=== PATIENT | male | born 1940 | race Caucasian/White ===

== ENCOUNTER 2018-02-26 09:13 | Emergency (ER) | payer OTHER ==
--- NOTE | 2018-02-26 11:16 | RAD REPORT ---
EXAM DESCRIPTION: VAS - Upper Ext Artery Bilateral - 02/26/2018 10:42 am CLINICAL HISTORY: hand pain, discolored hands COMPARISON: None. TECHNIQUE: Sonographic evaluation of the bilateral upper extremity arterial tree performed. Waveform s and velocity values were obtained along with visual inspection. FINDINGS: No occlusion identified. No focal flow restricting lesion was seen. Arterial flow was demo nstrated in the bilateral subclavian axillary, brachial, radial and ulnar arteries. Right subclavian velocity was 109 cm/second with an 84 cm/second left subclavian velocity. Axillary velocities were 11 4 cm/second on the right and 106 cm/second on the left. Mid brachial artery velocity values were 111 cm/second on the right and 99 cm/second on the left. Radial artery velocities were 81 cm/second on th e right and 76 cm/second on the left. Ulnar artery velocities measured 76 cm per second on the right and 53 cm/second on the left. Atherosclerotic changes are identifiable in the vascular tree. IMPRESSION: Bilateral upper extremity atherosclerotic changes are identifiable. However, no occlusio n or flow restricting lesion. Bilateral radial and ulnar artery blood flow demonstrated.
--- NOTE | 2018-02-26 11:22 | RAD REPORT ---
EXAM DESCRIPTION: VAS - Extrem Venous W Compress Antoine - 02/26/2018 10:57 am CLINICAL HISTORY: Upper extremity pain and swelling. COMPARISON: None. TECHNIQUE: Real-time sonographic interrogation of the left and right upper extremity deep venous sys tems was performed. FINDINGS: Normal compressibility, flow augmentation, phasic flow and spontaneous flow is identified in both the left and right upper extremity deep venous systems. IMPRESSION: No sonographic evidence of left or right upper extremity deep venous thrombosis.
[2018-02-26 11:29] LABS: Absolute Lymphocytes (CBC) 1.1 K/uL (0.7-4.9); Absolute Monocytes 0.5 K/uL (0.1-1.3); Absolute Neutrophil 3.7 K/uL (1.8-8.0); Basophils % 0.3 % (0-1.3); Eosinophils % 1.3 % (0-4.4); Hematocrit 37.2 % (39.6-49.0); Lymphocytes % 20.9 % (15.3-44.8); MCH 30.7 pg (27.0-35.0); MCV 92.5 fL (80-100); MPV 8.7 fL (7.6-11.3); Monocytes % 9.4 % (3.3-12.3); RBC Red Blood Cell Count 4.02 M/uL (4.33-5.43)
[2018-02-26 11:34] LABS: Protime INR 1.06
[2018-02-26 11:41] LABS: Potassium 4.2 mEq/L (3.6-5.0)
--- NOTE | 2018-02-26 11:45 | EDPHYS ---
Physician Documentation [facility] Name: Josué Durbin Age: 77 yrs Sex: Male : 1940 Arrival Date: 02/26/2018 Time: 09:18 Bed 23 Private MD: Sergei Lauren V ED Physician Chuckie Wilson HPI: 02/26 11:06 This 77 yrs old Male presents to ER via Ambulatory with complaints of Blue rn Hands No radial pulse. 11:06 Reports at doctors office yesterday, had difficulty feeling radial pulses, states 2 rn months of intermittent bluish discoloration of both hands, no facial or truncal discoloration. No sob. No bleeding or concern for anemia.. Onset: The symptoms/episode began/occurred 2 month(s) ago. Severity of symptoms: At their worst the symptoms were mild in the emergency department the symptoms have improved. The patient has experienced similar episodes in the past. 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 - Social history:: Smoking status: Patient/guardian denies using tobacco. - Family history:: not pertinent. - Hospitalizations: : No recent hospitalization is reported. ROS: 11:06 Constitutional: Negative for fever, chills, and weight loss, Eyes: Negative for injury, rn pain, redness, and discharge, Neck: Negative for injury, pain, and swelling, Cardiovascular: Negative for chest pain, palpitations, and edema, Respiratory: Negative for shortness of breath, cough, wheezing, and pleuritic chest pain, Abdomen/GI: Negative for abdominal pain, nausea, vomiting, diarrhea, and constipation, Back: Negative for injury and pain, MS/Extremity: Negative for injury and deformity, Skin: Negative for injury, rash, and discoloration, Neuro: Negative for headache, weakness, numbness, tingling, and seizure. Exam: 11:06 Constitutional: This is a well developed, well nourished patient who is awake, alert, rn and in no acute distress. Head/Face: Normocephalic, atraumatic. Eyes: Pupils equal round and reactive to light, extra-ocular motions intact. Lids and lashes normal. Conjunctiva and sclera are non-icteric and not injected. Cornea within normal limits. Periorbital areas with no swelling, redness, or edema. Cardiovascular: Regular rate and rhythm with a normal S1 and S2. No gallops, murmurs, or rubs. Normal PMI, no JVD. No pulse deficits. Respiratory: Lungs have equal breath sounds bilaterally, clear to auscultation and percussion. No rales, rhonchi or wheezes noted. No increased work of breathing, no retractions or nasal flaring. Abdomen/GI: Soft, non-tender, with normal bowel sounds. No distension or tympany. No guarding or rebound. No evidence of tenderness throughout. Skin: Warm, dry with normal turgor. Normal color with no rashes, no lesions, and no evidence of cellulitis. MS/ Extremity: Pulses equal, no cyanosis. Neurovascular intact. Full, normal range of motion. Equal circumference. Neuro: Awake and alert, GCS 15, oriented to person, place, time, and situation. Cranial nerves II-XII grossly intact. Motor strength 5/5 in all extremities. Sensory grossly intact. Vital Signs: 09:48 BP 139 / 66; Pulse 16; Resp 16; Temp 98.1; Pulse Ox 100% on R/A; Pain 2/10; iw 11:26 BP 133 / 69; Pulse 50; Resp 18; Pulse Ox 98% ; aj1 MDM: 09:44 Patient medically screened. rn 11:43 Differential Diagnosis vascular spasm, anemia, vascular occlusion, medication side rn effect. Data reviewed: vital signs, nurses notes, lab test result(s), radiologic studies, doppler, ultrasound, and as a result, I will discharge patient. Counseling: I had a detailed discussion with the patient and/or guardian regarding: the historical points, exam findings, and any diagnostic results supporting the discharge/admit diagnosis, lab results, radiology results, the need for outpatient follow up, to return to the emergency department if symptoms worsen or persist or if there are any questions or concerns that arise at home. Response to treatment: the patient's condition has returned to base line. Special discussion: I discussed with the patient/guardian in detail that at this point there is no indication for admission to the hospital. It is understood, however, that if the symptoms persist or worsen the patient needs to return immediately for re-evaluation. ED course: Pt has f/u appt with cardiology tomorrow, return precautions given and understood.. 02/26 10:05 Order name: CBC with Diff; Complete Time: : rn 02/26 10:05 Order name: Basic Metabolic Panel; Complete Time: : rn 02/26 10:05 Order name: US Extrem Venous W Compression Antoine; Complete Time: rn 02/26 10:05 Order name: Protime (+inr); Complete Time: rn 02/26 10:05 Order name: Ptt, Activated; Complete Time: rn 02/26 10:22 Order name: Upper Ext Artery Bilateral; Complete Time: EDNC 02/26 10:05 Order name: IV Start; Complete Time: 11:25 rn Administered Medications: No medications were administered Disposition: 02/26/18 11:44 Discharged to Home. Impression: Cyanosis. - Condition is Stable. - Medication Reconciliation Form, Thank You Letter, Antibiotic Education, Prescription Opioid Use form. - Follow up: Sergei Lauren MD; When: As needed; Reason: Recheck today's complaints, Re-evaluation by your physician. - Problem is new. - Symptoms have improved. Signatures: Dispatcher [employer] Monique Gaffney RN RN aj1 Afshan Godfrey RN RN iw Chuckie Wilson MD MD rn
--- NOTE | 2018-02-26 11:45 | ER ---
Nurse's Notes [facility] Name: Josué Means Age: 77 yrs Sex: Male : 1940 Arrival Date: 02/26/2018 Time: 09:18 Bed 23 Private MD: Sergei Lauren V Diagnosis: Cyanosis Presentation: 02/26 09:47 Presenting complaint: Patient states: Bilateral hand pain and blue discoloration x 2-3 iw weeks. Transition of care: patient was received from another setting of care (ambulatory primary care physician practice), Sent by Dr. Huerta. Onset of symptoms is unknown. Care prior to arrival: None. 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 - Social history:: Smoking status: Patient/guardian denies using tobacco. - Family history:: not pertinent. - Hospitalizations: : No recent hospitalization is reported. Screenin:05 Abuse screen: Denies threats or abuse. Denies injuries from another. Nutritional aj1 screening: No deficits noted. Tuberculosis screening: No symptoms or risk factors identified. 11:49 Fall Risk None identified. aj1 Assessment: 10:05 General: Appears in no apparent distress. comfortable, Behavior is calm, cooperative, aj1 appropriate for age. Pain: Denies pain. Neuro: Level of Consciousness is awake, alert, obeys commands, forgetful. Speech is normal, Facial symmetry appears normal. Cardiovascular: Capillary refill < 3 seconds in bilateral fingers Patient's skin is warm and dry. Pulses are palpable in right radial artery and left radial artery. Respiratory: Airway is patent Respiratory effort is even, unlabored, Respiratory pattern is regular, symmetrical. GI: No signs and/or symptoms were reported involving the gastrointestinal system. : No signs and/or symptoms were reported regarding the genitourinary system. EENT: No signs and/or symptoms were reported regarding the EENT system. Derm: No signs and/or symptoms reported regarding the dermatologic system. Skin is pink, warm \T\ dry. normal. Musculoskeletal: No signs and/or symptoms reported regarding the musculoskeletal system. Circulation, motion, and sensation intact. 11:25 Reassessment: Patient appears in no apparent distress at this time. No changes from aj1 previously documented assessment. Patient and/or family updated on plan of care and expected duration. Pain level reassessed. Patient is alert, oriented x 3, equal unlabored respirations, skin warm/dry/pink. Vital Signs: 09:48 BP 139 / 66; Pulse 16; Resp 16; Temp 98.1; Pulse Ox 100% on R/A; Pain 2/10; iw 11:26 BP 133 / 69; Pulse 50; Resp 18; Pulse Ox 98% ; aj1 ED Course: 09:18 Patient arrived in ED. mr 09:19 Sergei Lauren MD is Private Physician. mr 09:44 Chuckie Wilson MD is Attending Physician. rn 09:48 Monique De Jesus RN is Primary Nurse. aj1 09:48 Triage completed. iw 09:48 Arm band placed on right wrist. iw 10:05 Patient has correct armband on for positive identification. Placed in gown. Bed in low aj1 position. Call light in reach. Side rails up X 1. Family at bedside. 10:05 No provider procedures requiring assistance completed. aj1 10:38 Patient taken to ultrasound. via wheelchair. lc3 10:42 Upper Ext Artery Bilateral In Process Unspecified. EDMS 10:43 US Extrem Venous W Compression Antoine In Process Unspecified. EDMS 11:07 Ultrasound completed. Patient tolerated well. Patient moved back from ultrasound. aa4 11:26 Initial lab(s) drawn, by oh, sent to lab. Inserted saline lock: 22 gauge in right aj1 antecubital area, using aseptic technique. Blood collected. 11:44 Sergei Lauren MD is Referral Physician. rn 12:28 IV discontinued, intact, bleeding controlled, No redness/swelling at site. Pressure aj1 dressing applied. Administered Medications: No medications were administered Outcome: 11:44 Discharge ordered by . rn 12:28 Discharged to home ambulatory. aj1 12:28 Condition: good 12:28 Discharge instructions given to patient, Instructed on discharge instructions, follow up and referral plans. Demonstrated understanding of instructions, follow-up care. 12:28 Patient left the ED. aj1 Signatures: Dispatcher [employer] EDMonique Younger RN RN aj1 Rivera, Maria mr Afsahn Godfrey RN RN iw Frazier, Amanda aa4 Chuckie Wilson MD MD rn Cunningham, Laulita lc3
[2018-02-26 12:35] VITALS: TEMP 98.1
[2018-02-26 12:37] VITALS: BP 133/69; O2SAT 98
== END 2018-02-26 12:28 | disposition home or self-care (01) ==
LOC: ER 09:13
DX: R23.0 Cyanosis (principal)
CPT/HCPCS: 36415; 80048; 85025; 85610; 85730; 93930; 93970; 99284

== ENCOUNTER 2018-03-02 22:02 | Emergency (ER) | payer OTHER ==
[2018-03-02 23:17] LABS: Absolute Lymphocytes (CBC) 1.5 K/uL (0.7-4.9); Absolute Monocytes 0.5 K/uL (0.1-1.3); Absolute Neutrophil 3.2 K/uL (1.8-8.0); Basophils % 0.5 % (0-1.3); Eosinophils % 1.5 % (0-4.4); Lymphocytes % 28.4 % (15.3-44.8); MCH 30.5 pg (27.0-35.0); MCV 92.6 fL (80-100); MPV 8.7 fL (7.6-11.3); Monocytes % 8.6 % (3.3-12.3); RBC Red Blood Cell Count 4.21 M/uL (4.33-5.43)
[2018-03-02 23:51] LABS: Protime INR 1.05
[2018-03-02 23:57] LABS: Bilirubin Direct 0.1 mg/dL (0-0.2); Bilirubin Total 0.3 mg/dL (0.3-1.2); Magnesium 1.9 mg/dL (1.8-2.5); Protein, Total 7.6 g/dL (6.0-8.3)
[2018-03-03 00:01] LABS: CKMB Creatine Kinase MB 1.7 ng/ml (0.3-4.0)
--- NOTE | 2018-03-03 01:10 | EDPHYS ---
Physician Documentation [facility] Name: Josué Durbin Age: 77 yrs Sex: Male : 1940 Arrival Date: 03/02/2018 Time: 22:04 Bed 7 Private MD: ED Physician Jimi Pavon HPI: 03/02 23:22 This 77 yrs old Male presents to ER via Ambulatory with complaints of High jr8 Blood Pressure. Chest pain. Shortness of breath. 23:22 The patient or guardian reports chest pain that is located primarily in the substernal jr8 area. Onset: gradually, 6 month(s) ago. The pain does not radiate. Associated signs and symptoms: Pertinent positives: shortness of breath, HERNDON. The chest pain is described as a pressure. Duration: The patient or guardian reports multiple episodes, that are intermittent, that wax and wane. Modifying factors: The symptoms are alleviated by rest. Severity of pain: At its worst the pain was mild in the emergency department the pain is unchanged. The patient has not experienced similar symptoms in the past. The patient has not recently seen a physician. Patient stated that for the past 6 months or so has been experiencing chest pain that is intermittent and relieved with rest. Stated that he came to hospital today for HERNDON which he normally does not have and elevated BP. 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 - Social history:: Smoking status: Patient uses tobacco products, cigars. ROS: 23:22 Eyes: Negative for injury, pain, redness, and discharge, ENT: Negative for injury, jr8 pain, and discharge, Neck: Negative for injury, pain, and swelling, Abdomen/GI: Negative for abdominal pain, nausea, vomiting, diarrhea, and constipation, Back: Negative for injury and pain, MS/Extremity: Negative for injury and deformity, Skin: Negative for injury, rash, and discoloration, Neuro: Negative for headache, weakness, numbness, tingling, and seizure. 23:22 Cardiovascular: Positive for chest pain, edema, Negative for orthopnea, palpitations, acute changes. 23:22 Respiratory: Positive for dyspnea on exertion, shortness of breath. Exam: 23:22 Eyes: Pupils equal round and reactive to light, extra-ocular motions intact. Lids and jr8 lashes normal. Conjunctiva and sclera are non-icteric and not injected. Cornea within normal limits. Periorbital areas with no swelling, redness, or edema. ENT: Nares patent. No nasal discharge, no septal abnormalities noted. Tympanic membranes are normal and external auditory canals are clear. Oropharynx with no redness, swelling, or masses, exudates, or evidence of obstruction, uvula midline. Mucous membranes moist. Neck: Trachea midline, no thyromegaly or masses palpated, and no cervical lymphadenopathy. Supple, full range of motion without nuchal rigidity, or vertebral point tenderness. No Meningismus. Respiratory: Lungs have equal breath sounds bilaterally, clear to auscultation and percussion. No rales, rhonchi or wheezes noted. No increased work of breathing, no retractions or nasal flaring. Abdomen/GI: Soft, non-tender, with normal bowel sounds. No distension or tympany. No guarding or rebound. No evidence of tenderness throughout. Back: No spinal tenderness. No costovertebral tenderness. Full range of motion. Skin: Warm, dry with normal turgor. Normal color with no rashes, no lesions, and no evidence of cellulitis. MS/ Extremity: Pulses equal, no cyanosis. Neurovascular intact. Full, normal range of motion. Neuro: Awake and alert, GCS 15, oriented to person, place, time, and situation. Cranial nerves II-XII grossly intact. Motor strength 5/5 in all extremities. Sensory grossly intact. Cerebellar exam normal. Normal gait. 23:22 Cardiovascular: Rate: bradycardic, Rhythm: regular, Pulses: Pulses are 2+ in right radial artery and left radial artery. Heart sounds: normal, normal S1and S2, no S3 or S4, no murmur, no rub, no gallop, Edema: 2+ edema to level of left midcalf, left ankle, right midcalf and right ankle, JVD: is not appreciated. Vital Signs: 22:27 BP 148 / 110; Pulse 65; Resp 18; Temp 97.7(O); Pulse Ox 98% on R/A; Weight 78.02 kg; tl2 Height 5 ft. 7 in. (170.18 cm); Pain 0/10; 22:35 BP 130 / 77; Pulse 56; Resp 18; Pulse Ox 98% on R/A; tl2 23:10 BP 182 / 80; Pulse 66; Resp 19; Pulse Ox 98% on R/A; tl2 23:51 BP 123 / 68; Pulse 54; Resp 16; Pulse Ox 98% on R/A; tl2 03/03 00:35 BP 156 / 65; Pulse 55; Resp 18; Pulse Ox 99% on R/A; tl2 01:09 BP 128 / 69; Pulse 52; Resp 18; Pulse Ox 98% on R/A; Pain 0/10; tl2 03/02 22:27 Body Mass Index 26.94 (78.02 kg, 170.18 cm) tl2 MDM: 03/02 22:18 Patient medically screened. [facility] 03/03 01:05 Data reviewed: vital signs, nurses notes, lab test result(s), EKG, radiologic studies, jr8 plain films, and as a result, I will discharge patient. Data interpreted: Pulse oximetry: on room air is 99 %. Interpretation: normal. Counseling: I had a detailed discussion with the patient and/or guardian regarding: the historical points, exam findings, and any diagnostic results supporting the discharge/admit diagnosis, lab results, radiology results, the need for outpatient follow up, a oracle business intelligence developer, to return to the emergency department if symptoms worsen or persist or if there are any questions or concerns that arise at home. ED course: Patient feeling better while in ED. Blood pressure stable. Bradycardia with 1st degree AV block and sinus pause noted. Explained to patient that labs and imaging are stable. No acute findings. What he has been experiencing can be related to HR itself. Recommended observation overnight in hospital but patient wants to go home. Patient has echocardiogram scheduled this Sunday with Dr. Huerta. Pacemaker has been considered as well and may be done in near future per family. Patient was able to ambulate with no problem. Denied dizziness, Fatigue, chest pain, or shortness of breath . 03/02 22:54 Order name: Basic Metabolic Panel; Complete Time: 00:02 03/02 22:54 Order name: BNP; Complete Time: 00:02 03/02 22:54 Order name: CBC with Diff; Complete Time: 23:55 03/02 22:54 Order name: Ckmb; Complete Time: 00:02 03/02 22:54 Order name: CPK; Complete Time: 00:02 03/02 22:54 Order name: LFT's; Complete Time: 00:02 03/02 22:54 Order name: Magnesium; Complete Time: 00:02 03/02 22:54 Order name: PT-INR; Complete Time: 23:58 03/02 22:54 Order name: Ptt, Activated; Complete Time: 23:58 03/02 22:54 Order name: Troponin (emerg Dept Use Only); Complete Time: 23:58 03/02 22:54 Order name: XRAY Chest (1 view) 03/02 22:54 Order name: EKG; Complete Time: 22:54 03/02 22:54 Order name: Cardiac monitoring; Complete Time: 23:10 03/02 22:54 Order name: EKG - Nurse/Tech; Complete Time: 23:10 03/02 22:54 Order name: IV Saline Lock; Complete Time: 23:10 03/02 22:54 Order name: Labs collected and sent; Complete Time: 23:10 03/02 22:54 Order name: O2 Per Protocol; Complete Time: 23:10 03/02 22:54 Order name: O2 Sat Monitoring; Complete Time: 23:03/02 22:54 Order name: Urine Dipstick-Ancillary (obtain specimen); Complete Time: 01:07 Administered Medications: No medications were administered Disposition: 03/03/18 01:09 Discharged to Home. Impression: Bradycardia, unspecified, Chest pain, unspecified. - Condition is Stable. - Discharge Instructions: Bradycardia, Nonspecific Chest Pain. - Medication Reconciliation Form, Thank You Letter, Antibiotic Education, Prescription Opioid Use form. - Follow up: Liam Huerta MD; When: 2 - 3 days; Reason: Recheck today's complaints, Continuance of care, Re-evaluation by your physician. - Problem is new. - Symptoms have improved. Addendum: 03/04/2018 06:22 Co-signature as Attending Physician, Giovany MCCLOUD. g s Signatures: Dispatcher [employer] EDMS Giovany Schmidt PA PA jr8 Eden Santos RN RN tl2 Jimi Pavon MD MD
--- NOTE | 2018-03-03 01:10 | ER ---
Nurse's Notes [facility] Name: Josué Durbin Age: 77 yrs Sex: Male : 1940 Arrival Date: 03/02/2018 Time: 22:04 Bed 7 Private MD: Diagnosis: Bradycardia, unspecified;Chest pain, unspecified Presentation: 03/02 22:22 Presenting complaint: Child states: His blood pressure was high today and he's been tl2 shaking and more tired than normal. We have an appointment on Sunday with Dr Huerta to talk about putting in a pacemaker. Pt is AOx4, denies any chest pain or shortness of breath. Transition of care: patient was not received from another setting of care. Onset of symptoms was March 02, 2018. Care prior to arrival: None. 22:22 Method Of Arrival: Ambulatory tl2 22:22 Acuity: JERE 3 tl2 Triage Assessment: 22:27 General: Appears in no apparent distress. comfortable, Behavior is calm, cooperative, tl2 appropriate for age. Pain: Denies pain. Neuro: Level of Consciousness is awake, alert, obeys commands, Oriented to person, place, time, situation. Cardiovascular: Denies chest pain. Respiratory: Airway is patent Respiratory effort is even, unlabored, Respiratory pattern is regular, symmetrical. GI: No signs and/or symptoms were reported involving the gastrointestinal system. : No signs and/or symptoms were reported regarding the genitourinary system. Derm: Skin is clammy, Skin is normal. Musculoskeletal: Parent/caregiver report the patient having tremors. 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 - Social history:: Smoking status: Patient uses tobacco products, cigars. Screenin:28 Abuse screen: Denies threats or abuse. Nutritional screening: No deficits noted. tl2 Tuberculosis screening: No symptoms or risk factors identified. Fall Risk Ambulatory Aid- Crutches/Cane/Walker (15 pts). Assessment: 22:28 General: see triage assessment. tl2 23:11 Reassessment: Patient appears in no apparent distress at this time. No changes from tl2 previously documented assessment. Patient and/or family updated on plan of care and expected duration. Pain level reassessed. Patient is alert, oriented x 3, equal unlabored respirations, skin warm/dry/pink. 23:51 Reassessment: Patient appears in no apparent distress at this time. Patient and/or tl2 family updated on plan of care and expected duration. Pain level reassessed. Patient is alert, oriented x 3, equal unlabored respirations, skin warm/dry/pink. 03/03 01:08 Reassessment: PA ordered to ambulate pt before discharge. Pt able to walk up and down tl2 hallway without assistance. Denied dizziness or pain. PA cleared pt for discharge. Reassessment: Pt and family verbalized understanding of discharge instructions and need for follow up. Vital Signs: 03/02 22:27 BP 148 / 110; Pulse 65; Resp 18; Temp 97.7(O); Pulse Ox 98% on R/A; Weight 78.02 kg; tl2 Height 5 ft. 7 in. (170.18 cm); Pain 0/10; 22:35 BP 130 / 77; Pulse 56; Resp 18; Pulse Ox 98% on R/A; tl2 23:10 BP 182 / 80; Pulse 66; Resp 19; Pulse Ox 98% on R/A; tl2 23:51 BP 123 / 68; Pulse 54; Resp 16; Pulse Ox 98% on R/A; tl2 03/03 00:35 BP 156 / 65; Pulse 55; Resp 18; Pulse Ox 99% on R/A; tl2 01:09 BP 128 / 69; Pulse 52; Resp 18; Pulse Ox 98% on R/A; Pain 0/10; tl2 03/02 22:27 Body Mass Index 26.94 (78.02 kg, 170.18 cm) tl2 ED Course: 03/02 22:04 Patient arrived in ED. do 22:18 Giovany Schmidt PA is PHCP. jr8 22:18 Jimi Pavon MD is Attending Physician. jr8 22:22 Eden Santos, JAMMIE is Primary Nurse. tl2 22:24 Triage completed. tl2 22:27 Arm band placed on right wrist. tl2 22:28 Patient has correct armband on for positive identification. Placed in gown. Bed in low tl2 position. Call light in reach. Side rails up X 1. Adult w/ patient. 23:06 X-ray completed. Portable x-ray completed in exam room. Patient tolerated procedure jw2 well. 23:10 Inserted saline lock: 20 gauge in right antecubital area, using aseptic technique. tl2 Blood collected. 23:12 XRAY Chest (1 view) In Process Unspecified. EDAL 03/03 01:08 Liam Huerta MD is Referral Physician. jr8 01:08 No provider procedures requiring assistance completed. tl2 01:12 IV discontinued, intact, bleeding controlled, No redness/swelling at site. Pressure tl2 dressing applied. Administered Medications: No medications were administered Outcome: 01:09 Discharge ordered by . jr8 01:12 Discharged to home ambulatory, with family. tl2 01:12 Condition: stable 01:12 Discharge instructions given to patient, family, Instructed on discharge instructions, follow up and referral plans. Demonstrated understanding of instructions, follow-up care. 01:13 Patient left the ED. tl2 Signatures: Dispatcher [employer] EDAL Giovany Schmidt PA PA jr8 Cheryl Desouza Jenni jw2 Eden Santos, RN RN tl2 Corrections: (The following items were deleted from the chart) 03/02 22:35 22:27 Derm: Skin is pink, warm \T\ dry. tl2 tl2
[2018-03-03 01:20] VITALS: TEMP 97.7
[2018-03-03 01:27] VITALS: BP 128/69; O2SAT 98
[2018-03-03 05:35] LABS: Urine Blood NEGATIVE (NEG); Urine Glucose NEGATIVE (NEG); Urine Protein NEGATIVE (NEG); Urine pH 6.5 (5.0-7.0)
--- NOTE | 2018-03-03 10:12 | RAD REPORT ---
EXAM DESCRIPTION: RAD - Chest Single View - 03/02/2018 11:14 pm CLINICAL HISTORY: Chest pain, shortness of breath COMPARISON: March 2015 TECHNIQUE: AP portable chest image was obtained 2309 hours . FINDINGS: No focal consolidation, mass or failure. Lung markings are mildly prominent but not clearl y different. Heart and vasculature are normal. No measurable pleural effusion and no pneumothorax. No gross bony abnormality seen. No acute aortic findings suspected. IMPRESSION: No focal lung parenchymal process seen. Baseline prominence of the interstitial markings not substantially different from comparison.
--- NOTE | 2018-03-03 22:33 | EKG ---
Test Date: 2018-03-02 Test Time: 22:58:01 Anesthesiology Technologist: MAYELA MEASUREMENT RESULTS: Intervals: Rate: 51 CT: 240 QRSD: 146 QT: 468 QTc: 431 [place]: P: CT: 240 QRS: -18 T: 102 INTERPRETIVE STATEMENTS: Sinus bradycardia with first degree AV block Left bundle branch block Abnormal ECG Compared to ECG 03/29/2015 06:58:51 no significant change from previous ECG Electronically Signed On 03-03-18 22:33:05 CDT by Renaldo Sullivan
== END 2018-03-03 01:13 | disposition home or self-care (01) ==
LOC: ER 22:02
DX: R00.1 Bradycardia, unspecified (principal); R06.00 Dyspnea, unspecified; G30.9 Alzheimer's disease, unspecified; F02.80 Dementia in other diseases classified elsewhere, unspecified severity, without behavioral disturbance, psychotic disturbance, mood disturbance, and anxiety; Z72.0 Tobacco use
CPT/HCPCS: 36415; 71045; 80048; 80076; 81003; 82550; 82553; 83735; 83880; 84484; 85025; 85610; 85730; 93005; 99284

== ENCOUNTER 2018-03-03 19:36 | Observation (INO) | payer OTHER ==
[2018-03-03] MEDS ORDERED: ASPIRIN 81 MG CHEWABLE TABLET ONE (20:46)
[2018-03-03 20:56] LABS: Absolute Lymphocytes (CBC) 1.2 K/uL (0.7-4.9); Absolute Monocytes 0.4 K/uL (0.1-1.3); Basophils % 0.3 % (0-1.3); Eosinophils % 1.5 % (0-4.4); Hematocrit 35.7 % (39.6-49.0); Lymphocytes % 26.3 % (15.3-44.8); MCH 31.3 pg (27.0-35.0); MCV 91.5 fL (80-100); MPV 8.6 fL (7.6-11.3); Monocytes % 8.7 % (3.3-12.3)
[2018-03-03 21:05] LABS: Potassium 4.2 mEq/L (3.6-5.0)
--- NOTE | 2018-03-03 21:35 | ER ---
Nurse's Notes [facility] Name: Josué Means Age: 77 yrs Sex: Male : 1940 Arrival Date: 03/03/2018 Time: 19:40 Bed 18 Private MD: Diagnosis: Chest pain, unspecified;Bradycardia, unspecified Presentation: 03/03 19:43 Presenting complaint: Child states: He had really high BP last night and his HR was low la1 and they wanted to keep him and he refused and he is getting worse with the chest discomfort and high BP. Transition of care: patient was not received from another setting of care. Onset of symptoms was March 03, 2018. Care prior to arrival: None. 19:43 Method Of Arrival: Wheelchair la1 19:43 Acuity: JERE 3 la1 Historical: - Allergies: 19:44 No Known Allergies; la1 - PMHx: 19:44 Alzheimers; enlarged prostate; la1 - Immunization history:: Adult Immunizations up to date. - Social history:: Smoking status: Patient uses tobacco products, cigars. Screenin:37 Abuse screen: Denies threats or abuse. Nutritional screening: No deficits noted. ea Tuberculosis screening: No symptoms or risk factors identified. Fall Risk None identified. Assessment: 20:36 General: Appears in no apparent distress. Behavior is calm, cooperative, appropriate ea for age. Pain: Pain: Complains of pain in chest Pain does not radiate. Pain currently is 4 out of 10 on a pain scale. Pain began 1 day ago. Neuro: Level of Consciousness is awake, alert, obeys commands, Oriented to person, place, time, situation, Appropriate for age. Cardiovascular: Heart tones present. Respiratory: Airway is patent Respiratory effort is even, unlabored, Respiratory pattern is regular, symmetrical, Breath sounds are clear bilaterally. GI: Abdomen is non-distended. : No signs and/or symptoms were reported regarding the genitourinary system. Derm: Skin is pink, warm \T\ dry. 20:51 Reassessment: Patient and/or family updated on plan of care and expected duration. Pain ea level reassessed. Patient is alert, oriented x 3, equal unlabored respirations, skin warm/dry/pink. family at bedside. 21:10 Reassessment: Patient and/or family updated on plan of care and expected duration. Pain ea level reassessed. Patient is alert, oriented x 3, equal unlabored respirations, skin warm/dry/pink. 22:49 Reassessment: Patient and/or family updated on plan of care and expected duration. Pain ea level reassessed. Patient is alert, oriented x 3, equal unlabored respirations, skin warm/dry/pink. Report called to Cheryl AGUDELO on fourth floor. Vital Signs: 19:46 BP 135 / 83; Pulse 51; Resp 17; Temp 98.2(TE); Pulse Ox 100% on R/A; Weight 78.02 kg; la1 Height 5 ft. 2 in. (157.48 cm); 20:40 BP 152 / 64; Pulse 52; Resp 18; Pulse Ox 99% on R/A; ea 21:10 BP 157 / 80; Pulse 50; Resp 18; Pulse Ox 99% on R/A; ea 22:50 BP 180 / 67; Pulse 52; Resp 18 S; Temp 98; Pulse Ox 99% on R/A; ea 19:46 Body Mass Index 31.46 (78.02 kg, 157.48 cm) la1 ED Course: 19:40 Patient arrived in ED. al2 19:44 Triage completed. la1 19:44 Arm band placed on left wrist. la1 19:54 Elda Obrien, JAMMIE is Primary Nurse. ea 19:56 Jimi Pavon MD is Attending Physician. gs 20:04 Giovany Schmidt PA is PHCP. rg2 20:38 Patient has correct armband on for positive identification. Bed in low position. Call ea light in reach. Side rails up X2. manager monitoring on. NIBP on. 20:38 Patient maintains SpO2 saturation greater than 95% on room air. ea 20:39 Inserted saline lock: 20 gauge in right antecubital area, using aseptic technique. ea Blood collected. 21:34 Sergei Lauren MD is Hospitalizing Provider. jr8 21:46 No provider procedures requiring assistance completed. Patient admitted, IV remains in ea place. Administered Medications: 20:50 Drug: Aspirin Chewable Tablet 324 mg Route: PO; ea 21:47 Follow up: Response: No adverse reaction ea Outcome: 21:34 Decision to Hospitalize by Provider. jr8 21:47 Instructed on the need for admit. ea 22:48 Condition: stable ea 22:52 Admitted to Med/surg accompanied by tech, via wheelchair, room 427, Report called to ricardo Luna RN 22:58 Patient left the ED. ricardo Signatures: Sosa Johnston2 Giovany Schmidt PA PA jr8 Kong Elizondo RN RN la1 Elda Obrien RN RN Jimi Devine MD MD gs Love, Niru siu2 Corrections: (The following items were deleted from the chart) 22:50 20:36 Pain: ricardo silva
--- NOTE | 2018-03-03 21:35 | EDPHYS ---
Physician Documentation [facility] Name: Josué Durbin Age: 77 yrs Sex: Male : 1940 Arrival Date: 03/03/2018 Time: 19:40 Bed 18 Private MD: ED Physician Jimi Pavon HPI: 03/03 20:34 This 77 yrs old Male presents to ER via Wheelchair with complaints of Chest jr8 Pain,. 20:34 The patient or guardian reports chest pain that is located primarily in the substernal jr8 area. Onset: acutely, today. The pain does not radiate. Associated signs and symptoms: Pertinent positives: weakness, fatigue. The chest pain is described as a heaviness, a pressure. Duration: The patient or guardian reports a single episode. Modifying factors: The symptoms are alleviated by rest, the symptoms are aggravated by activity. Severity of pain: At its worst the pain was moderate in the emergency department the pain has improved. The patient has experienced similar episodes in the past, a few times. The patient has been recently seen by a physician:. Patient recently seen yesterday for similar symptoms. Did not want to stay. Started to happen again today and came back for reevaluation and admission . Historical: - Allergies: 19:44 No Known Allergies; la1 - PMHx: 19:44 Alzheimers; enlarged prostate; la1 - Immunization history:: Adult Immunizations up to date. - Social history:: Smoking status: Patient uses tobacco products, cigars. ROS: 20:34 Eyes: Negative for injury, pain, redness, and discharge, ENT: Negative for injury, jr8 pain, and discharge, Neck: Negative for injury, pain, and swelling, Respiratory: Negative for shortness of breath, cough, wheezing, and pleuritic chest pain, Abdomen/GI: Negative for abdominal pain, nausea, vomiting, diarrhea, and constipation, Back: Negative for injury and pain, MS/Extremity: Negative for injury and deformity, Skin: Negative for injury, rash, and discoloration, Neuro: Negative for headache, weakness, numbness, tingling, and seizure. 20:34 Cardiovascular: Positive for chest pain, Negative for edema, orthopnea, palpitations, paroxysmal nocturnal dyspnea. Exam: 20:34 Head/Face: Normocephalic, atraumatic. Eyes: Pupils equal round and reactive to light, jr8 extra-ocular motions intact. Lids and lashes normal. Conjunctiva and sclera are non-icteric and not injected. Cornea within normal limits. Periorbital areas with no swelling, redness, or edema. ENT: Nares patent. No nasal discharge, no septal abnormalities noted. Tympanic membranes are normal and external auditory canals are clear. Oropharynx with no redness, swelling, or masses, exudates, or evidence of obstruction, uvula midline. Mucous membranes moist. Neck: Trachea midline, no thyromegaly or masses palpated, and no cervical lymphadenopathy. Supple, full range of motion without nuchal rigidity, or vertebral point tenderness. No Meningismus. Cardiovascular: Regular rate and rhythm with a normal S1 and S2. No gallops, murmurs, or rubs. Normal PMI, no JVD. No pulse deficits. Respiratory: Lungs have equal breath sounds bilaterally, clear to auscultation and percussion. No rales, rhonchi or wheezes noted. No increased work of breathing, no retractions or nasal flaring. Abdomen/GI: Soft, non-tender, with normal bowel sounds. No distension or tympany. No guarding or rebound. No evidence of tenderness throughout. Back: No spinal tenderness. No costovertebral tenderness. Full range of motion. Skin: Warm, dry with normal turgor. Normal color with no rashes, no lesions, and no evidence of cellulitis. MS/ Extremity: Pulses equal, no cyanosis. Neurovascular intact. Full, normal range of motion. Neuro: Awake and alert, GCS 15, oriented to person, place, time, and situation. Cranial nerves II-XII grossly intact. Motor strength 5/5 in all extremities. Sensory grossly intact. Cerebellar exam normal. Normal gait. Vital Signs: 19:46 BP 135 / 83; Pulse 51; Resp 17; Temp 98.2(TE); Pulse Ox 100% on R/A; Weight 78.02 kg; la1 Height 5 ft. 2 in. (157.48 cm); 20:40 BP 152 / 64; Pulse 52; Resp 18; Pulse Ox 99% on R/A; ea 21:10 BP 157 / 80; Pulse 50; Resp 18; Pulse Ox 99% on R/A; ea 22:50 BP 180 / 67; Pulse 52; Resp 18 S; Temp 98; Pulse Ox 99% on R/A; ea 19:46 Body Mass Index 31.46 (78.02 kg, 157.48 cm) la1 MDM: 20:02 Patient medically screened. gs 20:34 The patient was given aspirin in the Emergency Department. Data reviewed: vital signs, [facility] nurses notes, lab test result(s), EKG, radiologic studies, plain films, and as a result, I will admit patient. Data interpreted: Pulse oximetry: on room air is 100 %. Interpretation: normal. 21:32 Counseling: I had a detailed discussion with the patient and/or guardian regarding: the [facility] historical points, exam findings, and any diagnostic results supporting the discharge/admit diagnosis, lab results, radiology results, the need for further work-up and treatment in the hospital. ED course: Patient came back again today for same problem. Bradycardia noted again on EKG. Labs stable. Will admit for Dr. Huerta and Leonidas to further evaluate patient for chest pain and bradycardia . 21:34 ED course: Dr. Rodriguez called and was fine with admission to [facility] . [facility] 03/03 19:56 Order name: Basic Metabolic Panel 03/03 19:56 Order name: CBC with Diff 03/03 19:56 Order name: Troponin (emerg Dept Use Only); Complete Time: 21:22 03/03 19:57 Order name: Basic Metabolic Panel; Complete Time: 21:06 [facility] 03/03 19:57 Order name: CBC with Automated Diff; Complete Time: 21:04 [facility] 03/03 22:48 Order name: Urine Dipstick--Ancillary (enter results) 2 03/03 19:56 Order name: EKG; Complete Time: 19:57 03/03 19:56 Order name: Cardiac monitoring; Complete Time: 20:39 03/03 19:56 Order name: EKG - Nurse/Tech; Complete Time: 20:39 03/03 19:56 Order name: IV Saline Lock; Complete Time: 20:39 03/03 19:56 Order name: Labs collected and sent; Complete Time: 20:39 03/03 19:56 Order name: O2 Per Protocol; Complete Time: 20:40 03/03 19:56 Order name: O2 Sat Monitoring; Complete Time: 20:40 gs Administered Medications: 20:50 Drug: Aspirin Chewable Tablet 324 mg Route: PO; ea 21:47 Follow up: Response: No adverse reaction ea Disposition: 03/04 06:22 Co-signature as Attending Physician, Jimi Pavon MD. Disposition: 03/03/18 21:34 Hospitalization ordered by Sergei Lauren for Observation. Preliminary diagnosis are Chest pain, unspecified, Bradycardia, unspecified. - Bed requested for Telemetry/MedSurg (observation). - Status is Observation. ea - Condition is Stable. - Problem is new. - Symptoms are unchanged. UTI on Admission? No Signatures: Dispatcher [employer] EDMS Stephanie Steinberg RN RN mw Roszak, Josh, PA PA jr8 Kong Elizondo RN RN la1 Elda Obrien RN RN ea Starr, Gregory, MD MD
[2018-03-03] MEDS ORDERED: ONDANSETRON 4 MG/2 ML VIAL IV PRN (23:03)
[2018-03-03] MEDS ORDERED: ALBUTEROL 2.5 MG/3 ML NEB SOL NEB PRN (23:03)
[2018-03-03] MEDS ORDERED: ACETAMINOPHEN 500 MG TAB PO PRN (23:03)
[2018-03-03 23:09] VITALS: BMI 26.7
[2018-03-04 00:18] LABS: Urine Blood NEGATIVE (NEG); Urine Glucose NEGATIVE (NEG); Urine Protein NEGATIVE (NEG); Urine pH 5.5 (5.0-7.0)
[2018-03-04 04:52] LABS: Absolute Lymphocytes (CBC) 1.7 K/uL (0.7-4.9); Absolute Monocytes 0.5 K/uL (0.1-1.3); Absolute Neutrophil 2.1 K/uL (1.8-8.0); Basophils % 0.3 % (0-1.3); Eosinophils % 2.3 % (0-4.4); Hematocrit 36.1 % (39.6-49.0); Lymphocytes % 38.9 % (15.3-44.8); MCH 30.6 pg (27.0-35.0); MPV 9.3 fL (7.6-11.3); Monocytes % 11.5 % (3.3-12.3); RBC Red Blood Cell Count 3.92 M/uL (4.33-5.43)
[2018-03-04 05:30] LABS: Potassium 4.1 mEq/L (3.6-5.0)
--- NOTE | 2018-03-04 07:37 | EKG ---
Test Date: 2018-03-03 Test Time: 20:04:00 [employer] Developer: LA MEASUREMENT RESULTS: Intervals: Rate: 46 [place]: 260 QRSD: 142 QT: 496 QTc: 434 [place]: P: [place]: 260 QRS: 48 T: 92 INTERPRETIVE STATEMENTS: Sinus bradycardia with first degree AV block Left bundle branch block Abnormal ECG Compared to ECG 03/02/2018 22:58:01 no significant change from previous ECG Electronically Signed On 03-04-18 07:37:17 CDT by Renaldo Sullivan
[2018-03-04] MEDS ORDERED: ASPIRIN EC 81 MG TAB PO SCH (09:00)
[2018-03-04] MEDS ORDERED: REGADENOSON 0.4 MG/5 ML SYR IV ONE (10:11)
--- NOTE | 2018-03-04 11:08 | ECHO ---
HEIGHT: 5 ft 7 in WEIGHT: 170 lb 14.4 oz DATE OF STUDY: 03/04/[address]: Randall Schmidt 2-DIMENSIONAL: YES M.MODE: YES DOPPLER: YES COLOR FLOW: YES TDS: NO PORTABLE: NO DEFINITY: NO BUBBLE STUDY: NO DIAGNOSIS: CHEST PAIN CARDIAC HISTORY: CATHERIZATION: NO SURGERY: NO PROSTHETIC VALVE: NO PACEMAKER: NO MEASUREMENTS (cm) DIASTOLIC (NORMALS) SYSTOLIC (NORMALS) IVSd 1.2 (0.6-1.2) LA Diam (1.9-4.0) LVEF 52% LVIDd 5.0 (3.5-5.7) LVIDs 3.7 (2.0-3.5) %FS 27% LVPWd 1.1 (0.6-1.2) Ao Diam 2.8 (2.0-3.7) 2 DIMENSIONAL ASSESSMENT: RIGHT ATRIUM: NORMAL LEFT ATRIUM: NORMAL RIGHT VENTRICLE: NORMAL LEFT VENTRICLE: NORMAL TRICUSPID VALVE: NORMAL MITRAL VALVE: NORMAL PULMONIC VALVE: NORMAL AORTIC VALVE: NORMAL PERICARDIAL EFFUSION: NONE AORTIC ROOT: NORMAL LEFT VENTRICULAR WALL MOTION: NORMAL. DOPPLER/COLOR FLOW: MILD AORTIC, MITRAL AND TRCUSPID REGURGITATION. NORMAL RIGHT VENTRICULAR SYSTOLIC PRESSURE. COMMENTS: NORMAL 2D ECHO. MILD AORTIC, MITRAL AND TRICUSPID REGURGITATION. TECHNOLOGIST: SOHAIL JACKSON
--- NOTE | 2018-03-04 12:16 | CON ---
Chief Complaint: Chest pain. History Of Present Illness: Mr. Durbin is a gentleman, who has never had coronary heart disease, having some dizzy spells. He has advanced dementia and he came to the hospital. Chief complaint is something wrong with his hands. He cannot really explain it, but he is concerned that his hands symptoms indicate there is something wrong with his heart. He is known to have a left bundle first degree AV block. Dr. Huerta suspected he might have bradycardia beyond the 50 beats per minute or so we see commonly and was to have him do a 48 hour Holter that has not been done yet. He has been to the hospital 3 times with the same pain, has left AMA, but last time decided to come in I believe mostly at the urging of his family members. He has never had bypass surgery or a stent. Outpatient Medications: Seroquel, Myrbetriq, isosorbide mononitrate, finasteride, donepezil, tamsulosin, gabapentin. He does not have diabetes and does not have dyslipidemia. He smokes 1 cigar every day. Physical Examination: General: He is alert, little bit confused. He is oriented to person and place. HEENT: Normal. Lungs: Clear. Heart: Within normal limits, although there is bradycardia. Vital signs: Blood pressure 144/65, pulse is 67, temperature 97.8, and O2 sats 94. Extremities: Palpable but diminished distal pulses. EKG left bundle with first-degree AV block. The MI interval is 260 milliseconds. We have not seen any pauses or blocks. Of course we would strongly recommend avoiding digoxin, verapamil, diltiazem and beta-blockers of all kinds. The patient's hand exam reveals normal color. He has recently had normal arterial Doppler studies of the arms and hands that look normal. He points to his chest. His radial pulses are normal. I think we should do a pharmacologic nuclear stress test. If there is underlying ischemic heart disease, then make a clear decision on what to do if it is positive. I do not think he necessarily needs a cardiac cath. His symptoms do not sound like unstable angina. He has normal troponins. Thank you very much for your kind referral of Mr. Durbin. I will follow him with you. DEVIKA/LACY Voice ID: [id number] Report ID: [id number] MTDD
[2018-03-04 12:21] VITALS: BP 180/83; TEMP 97.8
[2018-03-04 12:30] VITALS: O2SAT 97
--- NOTE | 2018-03-04 12:34 | TREADPHA ---
DX: CHEST PAIN Date of Study: 03/04/2018 Ht: 5' 7 " Wt: 170 lb 14.4 oz Consulting Physician: PURNIMA MEDICATIONS: TYLENOL, PROVENTIL, ASPIRIN, ZOFRAN HISTORY: 77 YEAR OLD MALE WITH COMPLAINTS OF CHEST PAIN. MEDICAL HISTORY OF ALZHEIMER'S, ENLARGED PROSTATE AND HYPERTENSION. PHYSICIAL EXAMINATION: RESTING B.P.: 180/90 RESTING H.R.: 47 RESTING EKG: SINUS BRADYCARDIA. FIRST DEGREE AV BLOCK. LEFT BUNDLE BRANCH BLOCK. PROTOCOL: LEXISCAN EXERCISE TIME: 3:30 B.P. AT PEAK STRESS: 178/94 IMPRESSION: LEXISCAN STRESS TEST PER PROTOCOL. CARDIOLITE INJECTED AT THREE MINUTES OF TEST. CHEST PAIN BEFORE, DURNING AND AFTER STRESS. NON DIAGNOSTIC EKG WITH LEXISCAN STRESS.
--- NOTE | 2018-03-04 13:08 | RAD REPORT ---
EXAM DESCRIPTION: NM - Rest Stress Cardiac Imaging - 03/04/2018 12:57 pm CLINICAL HISTORY: Chest pain COMPARISON: None. TECHNIQUE: The patient was administered 10.9 mCi of Tc 99m Sestamibi prior to resting SPECT imaging of the heart. The patient was then administered 32.2 mCi of Tc 99m Sestamibi following exercise or ph armacologic stress. Multiplanar SPECT images were reviewed. FINDINGS: The end diastolic volume is 121 ml, the end systolic volume is 44 ml, and the ejection fra ction is 64 %. No stress-induced ischemic changes are identifiable. There is a moderately large fixed defect along t he inferior and inferoseptal wall unchanged between rest and stress imaging. A smaller focal area dim inished activity along the anterior wall also unchanged between rest and stress imaging. There is thi nning at the apex. IMPRESSION: No stress-induced ischemic changes identified. Moderate inferior wall and small anterior wall fixed defects that could be scarring, attenuation violet fact or a combination. End-diastolic volume is enlarged slightly at 121 milliliters. Ejection fraction is normal at 64%.
--- NOTE | 2018-03-04 21:12 | P.SSS ---
Patient History Date of Service: 03/04/18 Reason for admission: HANDS TURN BLUE FOR WEEKS History of Present Illness: MR. FOSTER IS A SMOKER WHO NOW HAS DEMENTIA SO ENDS UP IN HOSPITAL WITH CHRONIC COMPLAINTS. LAST WEEK HE CAME WITH BLUISH PALMS AND I OBSERVED THAT HE HAD FEEBLE RADIALS FROM SMOKING HISTORY WITH PVD AND DECIDED TO SEND HIM TO DEVELOPMENT REPRESENTATIVE HE KNOWS. I GAVE THE FAMILY ALL INSTRUCTIONS AND HE ENDS UP IN ER. 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 HIS SAID HE HAD CHEST PAIN. HE IS COMFORTABLY SITTING IN THE BED WHEN I SEE HIM. Allergies No Known Allergies Allergy (Verified 03/03/18 23:11) Home Medications: Curaphen 1 tab PO BEDTIME 03/03/18 Donepezil HCl [Aricept] 23 mg PO BEDTIME 03/03/18 Finasteride [Proscar] 5 mg PO BEDTIME 03/03/18 Gabapentin [Neurontin] 100 mg PO TID 03/03/18 Isosorbide Mononitrate [Isosorbide Mononitrate ER] 30 mg PO BEDTIME 03/03/18 Mirabegron [Myrbetriq] 25 mg PO BEDTIME 03/03/18 Quetiapine Fumarate [Seroquel] 25 mg PO BEDTIME 03/03/18 Tamsulosin [Flomax] 0.4 mg PO BEDTIME 03/03/18 - Past Medical/Surgical History Has patient received pneumonia vaccine in the past: No Diabetic: No -: CVA -: Alzheimers -: Enlarge Prostate -: Depression -: Neuropathy -: Cholecystectomy -: Rt knee surgery -: hernia repair - Family History Mother -: Hypertension Father History Unknown: Yes - Social History Smoking Status: Light Tobacco smoker (1-9 cigarettes/day) Alcohol use: No CD- Drugs: No Caffeine use: Yes Place of Residence: Home Review of Systems 10-point ROS is otherwise unremarkable General: Weakness, Malaise Physical Examination - Vital Signs Temperature: 97.8 F Blood Pressure: 180/83 Pulse: 48 Respirations: 18 Pulse Ox (%): 96 - Physical Exam General: Alert, In no apparent distress, Confused (ABOUT HOW TO COMPLAIN AND ALSO DID NOT REMEMBER I HAD SEEN HIM FOR THE SAME.) HEENT: Atraumatic, PERRLA, Mucous membr. moist/pink, EOMI, Sclerae nonicteric Neck: Supple, 2+ carotid pulse no bruit, No LAD, Without JVD or thyroid abnormality Respiratory: Clear to auscultation bilaterally, Normal air movement Cardiovascular: Regular rate/rhythm, Normal S1 S2 Gastrointestinal: Normal bowel sounds, No tenderness Musculoskeletal: No tenderness Integumentary: Other (SOMEWHAT DARKEND SKIN OF PALMS.) Neurological: Normal gait, Normal speech, Normal strength at 5/5 x4 extr, Normal tone, Normal affect Lymphatics: No axilla or inguinal lymphadenopathy - Studies Laboratory Data (last 24 hrs) 03/03/18 20:35: BUN 16, Creatinine 1.02 - Diagnosis (Problem(s)) (1) Vascular disease of the skin Status: Acute Plan: SMOKING RELATED. HE IS ADIVSED TO QUIT SMOKING AGAIN. I TOLD HIM THAT HIS CIRCULATION WILL GET WORSE SLOWLY AND NOT MUCH CAN BE DONE UNLES HE QUITS SMOKING. (2) Smoker Status: Chronic Plan: HE NEVER TOLD ME ABOUT CHEST PAIN HIS STRESS TEST IS NEGATIVE FOR ANY ACUTE FINDINGS. - Disposition Disposition: ROUTINE DISCHARGE Condition: FAIR Patient Discharge Instructions: TAKE YOUR PILLS SOON YOU REACH HOME. Diet: AHA
== END 2018-03-04 13:59 | disposition home or self-care (01) ==
LOC: ER 19:36 → 4TH 21:49
PROVIDERS: ADMIT Internal Medicine; ATTEND Internal Medicine
DX: I99.8 Other disorder of circulatory system (principal); G30.9 Alzheimer's disease, unspecified; F02.80 Dementia in other diseases classified elsewhere, unspecified severity, without behavioral disturbance, psychotic disturbance, mood disturbance, and anxiety; F32.9 Major depressive disorder, single episode, unspecified; Z86.73 Personal history of transient ischemic attack (TIA), and cerebral infarction without residual deficits; F17.210 Nicotine dependence, cigarettes, uncomplicated
CPT/HCPCS: 36415; 78452; 80048 ×2; 81003; 84484 ×3; 85025 ×2; 93005; 93017; 93306; 99285; A9500; G0378 ×2; J2785; 71045; 80076; 82550; 82553; 83735; 83880; 85610; 85730; 99284

== ENCOUNTER 2019-03-02 22:11 | Emergency (ER) | payer OTHER ==
--- NOTE | 2019-03-02 23:39 | ER ---
Nurse's Notes [facility] Name: Josué Durbin Age: 78 yrs Sex: Male : 1940 Arrival Date: 03/02/2019 Time: 22:12 Bed 7 Private MD: Sergei Lauren V Diagnosis: Hemorrhagic Bullae Presentation: 03/02 22:15 Presenting complaint: Daughter states that today pt noted blisters in his mouth and fc they were bleeding. Concerned due to him having Myelodysplastic Syndrome. Transition of care: patient was not received from another setting of care. Onset of symptoms was March 02, 2019. Risk Assessment: Do you want to hurt yourself or someone else? Patient reports no desire to harm self or others. Initial Sepsis Screen: Does the patient meet any 2 criteria? No. Patient's initial sepsis screen is negative. Does the patient have a suspected source of infection? No. Patient's initial sepsis screen is negative. Care prior to arrival: None. 22:15 Method Of Arrival: Ambulatory fc 22:15 Acuity: JERE 3 fc Historical: - Allergies: 22:43 No Known Allergies; fc - Home Meds: 22:43 memantine 5 mg oral tab 1 tabs daily [Active]; Levaquin 500 mg Oral tab 1 tab once fc daily [Active]; valacyclovir 500 mg Oral tab 1 tab once daily [Active]; posaconazole oral 100 mg oral 3 tabs once daily [Active]; donepezil 23 mg Oral tab 1 tab once daily for Mild to Moderate Alzheimer's Type Dementia [Active]; finasteride 5 mg Oral tab 1 tab once daily [Active]; gabapentin 100 mg Oral tab 1 caps 3 times per day [Active]; isosorbide mononitrate 30 mg Oral Tb24 1 tab once daily [Active]; magnesium oxide 400 mg Oral tab daily [Active]; Myrbetriq 25 mg Oral Tb24 1 tab once daily [Active]; omeprazole 40 mg Oral cpDR 1 cap once daily [Active]; quetiapine 100 mg oral tab 1 tab nightly [Active]; - PMHx: 22:43 Alzheimers; enlarged prostate; GERD; Dementia; Hypertension; Myeldoysplastic Syndrome; fc Anemia; thrombocytopenia; pancytopenia; - PSHx: 22:43 Knee surgery; Cholecystectomy; fc - Immunization history:: Last tetanus immunization: unknown, Flu vaccine is not up to date. - Social history:: Smoking status: Patient uses tobacco products, cigars, Patient/guardian denies using alcohol, street drugs. - Ebola Screening: : No symptoms or risks identified at this time. Screenin:31 Abuse screen: Denies threats or abuse. Denies injuries from another. Nutritional lp1 screening: No deficits noted. Tuberculosis screening: No symptoms or risk factors identified. Fall Risk Total Chapman Fall Scale indicates High Risk Score (45 or more points). Fall prevention measures have been instituted. Side Rails Up X 2 As available patient and family educated on Fall Prevention Program and Strategies. Assessment: 22:30 General: Appears in no apparent distress. Behavior is calm, cooperative, appropriate lp1 for age. Pain: Complains of pain in right buccal mucosa Pain currently is 9 out of 10 on a pain scale. Neuro: Level of Consciousness is awake, alert, obeys commands, Oriented to person, place, situation. Cardiovascular: Patient's skin is warm and dry. Respiratory: Respiratory effort is even, unlabored. GI: No deficits noted. : No deficits noted. EENT: Oral mucosa is moist. Poor dentition noted. Lesions noted. Derm: Skin is pink, warm \T\ dry. Musculoskeletal: No deficits noted. 23:37 Reassessment: pt refused lab draw, PA aware, awaiting dispo. tl2 Vital Signs: 22:15 BP 172 / 90; Pulse 56; Resp 18; Temp 98.3(O); Pulse Ox 100% on R/A; Weight 75.3 kg (R); Height 5 ft. 7 in. (170.18 cm) (R); Pain 9/10; 23:38 BP 117 / 59; Pulse 55; Resp 18; Pulse Ox 100% on R/A; tl2 22:15 Body Mass Index 26.00 (75.30 kg, 170.18 cm) ED Course: 22:12 Patient arrived in ED. do 22:13 Sergei Lauren MD is Private Physician. do 22:15 Arm band placed on Patient placed in an exam room, on a stretcher. 22:26 [facility] Schmidt [facility]. jr8 22:26 Chuckie Wilson MD is Attending Physician. jr8 22:30 Teressa Smith, RN is Primary Nurse. lp1 22:32 Patient has correct armband on for positive identification. Pulse ox on. NIBP on. lp1 22:36 Triage completed. 23:49 No provider procedures requiring assistance completed. Patient did not have IV access lp1 during this emergency room visit. Administered Medications: No medications were administered Outcome: 23:39 Discharge ordered by . michele 23:49 Discharged to home ambulatory, with family. lp1 23:49 Condition: good 23:49 Discharge instructions given to patient, family, Instructed on discharge instructions, follow up and referral plans. Demonstrated understanding of instructions, follow-up care. 23:49 Patient left the ED. lp1 Signatures: Anuradha Holloway, RN RN Teressa Smith, RN RN lp1 Giovany Schmidt PA PA jr8 Ogletree, Danielle do Knox, Taylor RN RN tl2
--- NOTE | 2019-03-02 23:40 | EDPHYS ---
Physician Documentation [facility] Name: Josué Durbin Age: 78 yrs Sex: Male : 1940 Arrival Date: 03/02/2019 Time: 22:12 Bed 7 Private MD: Sergei Lauren V ED Physician Chuckie Wilson HPI: 03/02 23:29 This 78 yrs old Male presents to ER via Ambulatory with complaints of jr8 Bleeding in Mouth. 23:29 The patient presents with a lesion. The problem is located in the mouth. Onset: The jr8 symptoms/episode began/occurred acutely, today. Duration: The symptoms are continuous. Modifying factors: The symptoms are alleviated by nothing, the symptoms are aggravated by nothing. Associated signs and symptoms: The patient has no apparent associated signs or symptoms. Severity of symptoms: At their worst the symptoms were very mild, in the emergency department the symptoms are unchanged. The patient has not experienced similar symptoms in the past. The patient has not recently seen a physician. Patient with history of myelodysplastic syndrome. Currently on Levaquin, valacyclovir, and Noxafil before chemo trial for cancer. Started to have blistering lesions that have blood in them that developed today. Historical: - Allergies: 22:43 No Known Allergies; fc - Home Meds: 22:43 memantine 5 mg oral tab 1 tabs daily [Active]; Levaquin 500 mg Oral tab 1 tab once fc daily [Active]; valacyclovir 500 mg Oral tab 1 tab once daily [Active]; posaconazole oral 100 mg oral 3 tabs once daily [Active]; donepezil 23 mg Oral tab 1 tab once daily for Mild to Moderate Alzheimer's Type Dementia [Active]; finasteride 5 mg Oral tab 1 tab once daily [Active]; gabapentin 100 mg Oral tab 1 caps 3 times per day [Active]; isosorbide mononitrate 30 mg Oral Tb24 1 tab once daily [Active]; magnesium oxide 400 mg Oral tab daily [Active]; Myrbetriq 25 mg Oral Tb24 1 tab once daily [Active]; omeprazole 40 mg Oral cpDR 1 cap once daily [Active]; quetiapine 100 mg oral tab 1 tab nightly [Active]; - PMHx: 22:43 Alzheimers; enlarged prostate; GERD; Dementia; Hypertension; Myeldoysplastic Syndrome; fc Anemia; thrombocytopenia; pancytopenia; - PSHx: 22:43 Knee surgery; Cholecystectomy; fc - Immunization history:: Last tetanus immunization: unknown, Flu vaccine is not up to date. - Social history:: Smoking status: Patient uses tobacco products, cigars, Patient/guardian denies using alcohol, street drugs. - Ebola Screening: : No symptoms or risks identified at this time. ROS: 23:29 Eyes: Negative for injury, pain, redness, and discharge, ENT: Negative for injury, jr8 pain, and discharge, Neck: Negative for injury, pain, and swelling, Cardiovascular: Negative for chest pain, palpitations, and edema, Respiratory: Negative for shortness of breath, cough, wheezing, and pleuritic chest pain, Abdomen/GI: Negative for abdominal pain, nausea, vomiting, diarrhea, and constipation, Back: Negative for injury and pain, MS/Extremity: Negative for injury and deformity, Skin: Negative for injury, rash, and discoloration, Neuro: Negative for headache, weakness, numbness, tingling, and seizure. Exam: 23:29 Eyes: Pupils equal round and reactive to light, extra-ocular motions intact. Lids and jr8 lashes normal. Conjunctiva and sclera are non-icteric and not injected. Cornea within normal limits. Periorbital areas with no swelling, redness, or edema. Neck: Trachea midline, no thyromegaly or masses palpated, and no cervical lymphadenopathy. Supple, full range of motion without nuchal rigidity, or vertebral point tenderness. No Meningismus. Cardiovascular: Regular rate and rhythm with a normal S1 and S2. No gallops, murmurs, or rubs. Normal PMI, no JVD. No pulse deficits. Respiratory: Lungs have equal breath sounds bilaterally, clear to auscultation and percussion. No rales, rhonchi or wheezes noted. No increased work of breathing, no retractions or nasal flaring. Abdomen/GI: Soft, non-tender, with normal bowel sounds. No distension or tympany. No guarding or rebound. No evidence of tenderness throughout. Back: No spinal tenderness. No costovertebral tenderness. Full range of motion. Skin: Warm, dry with normal turgor. Normal color with no rashes, no lesions, and no evidence of cellulitis. MS/ Extremity: Pulses equal, no cyanosis. Neurovascular intact. Full, normal range of motion. Neuro: Awake and alert, GCS 15, oriented to person, place, time, and situation. Cranial nerves II-XII grossly intact. Motor strength 5/5 in all extremities. Sensory grossly intact. Cerebellar exam normal. Normal gait. 23:29 ENT: Exam is negative for earache, ear discharge, TM abnormalities, nasal discharge, Mouth: Lips: moist, Oral mucosa: pink and intact, moist, small hemorrhagic blister noted to right oral mucosa and to sublingual and lower lip regions, Gums: normal with healthy appearance, Tongue: is normal, Posterior pharynx: Airway: patent, Tonsils: are normal in appearance, Uvula: midline, non-edematous, no erythema, swelling, is not appreciated, erythema, is not appreciated. Vital Signs: 22:15 BP 172 / 90; Pulse 56; Resp 18; Temp 98.3(O); Pulse Ox 100% on R/A; Weight 75.3 kg (R); fc Height 5 ft. 7 in. (170.18 cm) (R); Pain 9/10; 23:38 BP 117 / 59; Pulse 55; Resp 18; Pulse Ox 100% on R/A; tl2 22:15 Body Mass Index 26.00 (75.30 kg, 170.18 cm) fc MDM: 22:26 Patient medically screened. 8 23:29 Data reviewed: vital signs, nurses notes, and as a result, I will discharge patient. jr8 Data interpreted: Pulse oximetry: on room air is 100 %. Interpretation: normal. Counseling: I had a detailed discussion with the patient and/or guardian regarding: the historical points, exam findings, and any diagnostic results supporting the discharge/admit diagnosis, the need for outpatient follow up, a family practitioner, to return to the emergency department if symptoms worsen or persist or if there are any questions or concerns that arise at home. ED course: Patient did not want us to check his CBC tonight. Discussed with him that a cause of these can be thrombocytopenia. Other causes could be from the MDS, medications, or idiopathic. Could not r/o worsening of thrombocytopenia without blood work. Patient understood but still declines at this point. Explained to them from an emergency stand point nothing else can be done with them except to monitor and watch for worsening or bleeding. Otherwise to f/u with oncologist. Family and patient good with this . Administered Medications: No medications were administered Disposition: 03/03 01:41 Co-signature as Attending Physician, Chuckie Wilson MD. rn Disposition: 03/02/19 23:39 Discharged to Home. Impression: Hemorrhagic Bullae . - Condition is Stable. - Discharge Instructions: Blisters, Adult. - Medication Reconciliation Form, Thank You Letter, Antibiotic Education, Prescription Opioid Use form. - Follow up: Private Physician; When: 2 - 3 days; Reason: Recheck today's complaints, Continuance of care, Re-evaluation by your physician. - Problem is new. - Symptoms have improved. Signatures: Dispatcher [employer] EDMS Anuradha Holloway RN RN Chuckie Goldman MD MD rn Pena, Laura, RN RN lp1 Giovany Schmidt PA PA jr8 Corrections: (The following items were deleted from the chart) 03/02 23:49 23:39 03/02/2019 23:39 Discharged to Home. Impression: Hemorrhagic Bullae . Condition lp1 is Stable. Forms are Medication Reconciliation Form, Thank You Letter, Antibiotic Education, Prescription Opioid Use. Follow up: Private Physician; When: 2 - 3 days; Reason: Recheck today's complaints, Continuance of care, Re-evaluation by your physician. Problem is new. Symptoms have improved. jr8
[2019-03-03 01:34] VITALS: TEMP 98.3; O2SAT 100
[2019-03-03 01:35] VITALS: BP 117/59
== END 2019-03-02 23:49 | disposition home or self-care (01) ==
LOC: ER 22:11
DX: L13.9 Bullous disorder, unspecified (principal); D46.9 Myelodysplastic syndrome, unspecified; G30.9 Alzheimer's disease, unspecified; F02.80 Dementia in other diseases classified elsewhere, unspecified severity, without behavioral disturbance, psychotic disturbance, mood disturbance, and anxiety; I10 Essential (primary) hypertension; Z72.0 Tobacco use
CPT/HCPCS: 99283

== ENCOUNTER 2019-03-24 14:57 | Emergency (ER) | payer OTHER ==
--- NOTE | 2019-03-24 16:31 | ER ---
Nurse's Notes [facility] Name: Josué Durbin Age: 78 yrs Sex: Male : 1940 Arrival Date: 03/24/2019 Time: 15:01 Bed 6 Private MD: Sergei Lauren V Diagnosis: Encounter for change or removal of nonsurgical wound dressing Presentation: 03/24 15:08 Presenting complaint: Patient states: Need a PICC line dressing change to R upper arm. ss Transition of care: patient was not received from another setting of care. Onset of symptoms is unknown. Risk Assessment: Do you want to hurt yourself or someone else? Patient reports no desire to harm self or others. Initial Sepsis Screen: Does the patient meet any 2 criteria? No. Patient's initial sepsis screen is negative. Does the patient have a suspected source of infection? No. Patient's initial sepsis screen is negative. Care prior to arrival: None. 15:08 Method Of Arrival: Ambulatory ss 15:08 Acuity: JERE 5 ss Triage Assessment: 16:15 General: Appears in no apparent distress. comfortable, Behavior is calm, cooperative, bp appropriate for age. Pain: Denies pain. EENT: No deficits noted. Neuro: Level of Consciousness is awake, alert, obeys commands, Oriented to person, place, time, situation, Appropriate for age. Cardiovascular: No deficits noted. Respiratory: No deficits noted. GI: No signs and/or symptoms were reported involving the gastrointestinal system. : No signs and/or symptoms were reported regarding the genitourinary system. Derm: No deficits noted. Musculoskeletal: Circulation, motion, and sensation intact. Range of motion: intact in all extremities. Historical: - Allergies: 15:10 No Known Allergies; ss - PMHx: 15:10 Alzheimers; Anemia; enlarged prostate; Dementia; GERD; Myeldoysplastic Syndrome; ss Pancytopenia; thrombocytopenia; Hypertension; - PSHx: 15:10 Cholecystectomy; Knee surgery; ss - Immunization history:: Adult Immunizations up to date. - Social history:: Smoking status: Patient uses tobacco products, cigars. - Ebola Screening: : Patient denies exposure to infectious person Patient denies travel to an Ebola-affected area in the 21 days before illness onset. Screenin:15 Abuse screen: Denies threats or abuse. Denies injuries from another. Nutritional bp screening: No deficits noted. Tuberculosis screening: No symptoms or risk factors identified. Fall Risk None identified. Assessment: 16:15 General: SEE TRIAGE NOTE. bp 16:45 Reassessment: PT D/C HOME AMBULATORY WITH FAMILY. bp Vital Signs: 15:10 BP 165 / 66; Pulse 48; Resp 20; Temp 98.5(TE); Pulse Ox 99% on R/A; Weight 72.57 kg; ss Height 5 ft. 7 in. (170.18 cm); Pain 0/10; 16:15 BP 157 / 71; Pulse 51; Resp 16; Temp 98.5; Pulse Ox 99% ; bp 15:10 Body Mass Index 25.06 (72.57 kg, 170.18 cm) ED Course: 15:01 Patient arrived in ED. mr 15:01 Sergei Lauren MD is Private Physician. mr 15:10 Triage completed. ss 15:10 Arm band placed on right wrist. ss 16:15 Patient has correct armband on for positive identification. Bed in low position. Call bp light in reach. Side rails up X2. Adult w/ patient. 16:15 No provider procedures requiring assistance completed. Patient did not have IV access bp during this emergency room visit. 16:18 Miquel Vaughn, RN is Primary Nurse. bp 16:20 Dressings: Tegaderm X 1; right arm. bp 16:23 Angelo Luevano MD is Attending Physician. haylee 16:26 [facility]. jr8 16:30 Merary Phillips MD is Referral Physician. jr8 Administered Medications: No medications were administered Outcome: 16:30 Discharge ordered by . jr8 16:46 Discharged to home ambulatory, with family. bp 16:46 Condition: stable 16:46 Discharge instructions given to patient, family, Instructed on discharge instructions, follow up and referral plans. Demonstrated understanding of instructions, follow-up care. 16:47 Patient left the ED. bp Signatures: Angelo Luevano MD MD cha Rivera, Mary Ariadna Rodriguez, JAMMIE RN Giovany Schmidt PA PA jr8 Miquel Vaughn, RN RN bp
--- NOTE | 2019-03-24 16:32 | EDPHYS ---
Physician Documentation [facility] Name: Josué Durbin Age: 78 yrs Sex: Male : 1940 Arrival Date: 03/24/2019 Time: 15:01 Bed 6 Private MD: Sergei Lauren V ED Physician Angelo Luevano HPI: 03/24 16:26 This 78 yrs old Male presents to ER via Ambulatory with complaints of Picc jr8 line dressing changed. 16:26 Patient called in to Oncologist because he recently had PICC line placed. Mild bruising jr8 and some bleeding noted. Oncologist wanted him to come here for dressing change as they did not have what was needed to do so in office . Severity of symptoms: At their worst the symptoms were very mild in the emergency department the symptoms are unchanged. The patient has not experienced similar symptoms in the past. The patient has been recently seen by a physician:. Historical: - Allergies: 15:10 No Known Allergies; ss - PMHx: 15:10 Alzheimers; Anemia; enlarged prostate; Dementia; GERD; Myeldoysplastic Syndrome; ss Pancytopenia; thrombocytopenia; Hypertension; - PSHx: 15:10 Cholecystectomy; Knee surgery; ss - Immunization history:: Adult Immunizations up to date. - Social history:: Smoking status: Patient uses tobacco products, cigars. - Ebola Screening: : Patient denies exposure to infectious person Patient denies travel to an Ebola-affected area in the 21 days before illness onset. ROS: 16:26 Eyes: Negative for injury, pain, redness, and discharge, ENT: Negative for injury, jr8 pain, and discharge, Neck: Negative for injury, pain, and swelling, Cardiovascular: Negative for chest pain, palpitations, and edema, Respiratory: Negative for shortness of breath, cough, wheezing, and pleuritic chest pain, Abdomen/GI: Negative for abdominal pain, nausea, vomiting, diarrhea, and constipation, Back: Negative for injury and pain, MS/Extremity: Negative for injury and deformity, Skin: Negative for injury, rash, and discoloration, Neuro: Negative for headache, weakness, numbness, tingling, and seizure. Exam: 16:26 Eyes: Pupils equal round and reactive to light, extra-ocular motions intact. Lids and jr8 lashes normal. Conjunctiva and sclera are non-icteric and not injected. Cornea within normal limits. Periorbital areas with no swelling, redness, or edema. ENT: Nares patent. No nasal discharge, no septal abnormalities noted. Tympanic membranes are normal and external auditory canals are clear. Oropharynx with no redness, swelling, or masses, exudates, or evidence of obstruction, uvula midline. Mucous membranes moist. Neck: Trachea midline, no thyromegaly or masses palpated, and no cervical lymphadenopathy. Supple, full range of motion without nuchal rigidity, or vertebral point tenderness. No Meningismus. Cardiovascular: Regular rate and rhythm with a normal S1 and S2. No gallops, murmurs, or rubs. Normal PMI, no JVD. No pulse deficits. Respiratory: Lungs have equal breath sounds bilaterally, clear to auscultation and percussion. No rales, rhonchi or wheezes noted. No increased work of breathing, no retractions or nasal flaring. Abdomen/GI: Soft, non-tender, with normal bowel sounds. No distension or tympany. No guarding or rebound. No evidence of tenderness throughout. Back: No spinal tenderness. No costovertebral tenderness. Full range of motion. Skin: Warm, dry with normal turgor. Normal color with no rashes, no lesions, and no evidence of cellulitis. Neuro: Awake and alert, GCS 15, oriented to person, place, time, and situation. Cranial nerves II-XII grossly intact. Motor strength 5/5 in all extremities. Sensory grossly intact. Cerebellar exam normal. Normal gait. 16:26 Musculoskeletal/extremity: Extremities: grossly normal except: noted in the right arm: Mild ecchymosis noted to inner right arm where PICC line is placed. No swelling, tenderness, erythema, or streaking noted. No active bleeding around site, ROM: no acute changes, intact in all extremities, Circulation is intact in all extremities. Sensation intact. Vital Signs: 15:10 BP 165 / 66; Pulse 48; Resp 20; Temp 98.5(TE); Pulse Ox 99% on R/A; Weight 72.57 kg; ss Height 5 ft. 7 in. (170.18 cm); Pain 0/10; 16:15 BP 157 / 71; Pulse 51; Resp 16; Temp 98.5; Pulse Ox 99% ; bp 15:10 Body Mass Index 25.06 (72.57 kg, 170.18 cm) MDM: 16:23 Patient medically screened. [facility] 16:26 Data reviewed: vital signs, nurses notes, and as a result, I will discharge patient. jr8 Data interpreted: Pulse oximetry: on room air is 99 %. Interpretation: normal. Counseling: I had a detailed discussion with the patient and/or guardian regarding: the historical points, exam findings, and any diagnostic results supporting the discharge/admit diagnosis, the need for outpatient follow up, Oncology, to return to the emergency department if symptoms worsen or persist or if there are any questions or concerns that arise at home. Administered Medications: No medications were administered Disposition: 03/25 07:01 Co-signature as Attending Physician, Angelo Luevano MD I agree with the assessment and [facility] plan of care. Disposition: 03/24/19 16:30 Discharged to Home. Impression: Encounter for change or removal of nonsurgical wound dressing. - Condition is Stable. - Discharge Instructions: PICC Home Guide, PICC Insertion, Care After. - Medication Reconciliation Form, Thank You Letter, Antibiotic Education, Prescription Opioid Use form. - Follow up: Merary Phillips MD; When: As needed; Reason: Recheck today's complaints, Continuance of care, Re-evaluation by your physician. - Problem is new. - Symptoms have improved. Signatures: Angelo Luevano MD MD cha Smirch, Shelby, RN RN Giovany Schmidt PA PA jr8 Miquel Vaughn RN RN bp Corrections: (The following items were deleted from the chart) 03/24 16:47 16:30 03/24/2019 16:30 Discharged to Home. Impression: Encounter for change or removal bp of nonsurgical wound dressing. Condition is Stable. Forms are Medication Reconciliation Form, Thank You Letter, Antibiotic Education, Prescription Opioid Use. Follow up: Merary Benitez; When: As needed; Reason: Recheck today's complaints, Continuance of care, Re-evaluation by your physician. Problem is new. Symptoms have improved. jr8
[2019-03-24 18:02] VITALS: TEMP 98.5; O2SAT 99
[2019-03-24 18:04] VITALS: BP 157/71
== END 2019-03-24 16:47 | disposition home or self-care (01) ==
LOC: ER 14:57
DX: Z48.00 Encounter for change or removal of nonsurgical wound dressing (principal); G30.9 Alzheimer's disease, unspecified; F02.80 Dementia in other diseases classified elsewhere, unspecified severity, without behavioral disturbance, psychotic disturbance, mood disturbance, and anxiety; D64.9 Anemia, unspecified; K21.9 Gastro-esophageal reflux disease without esophagitis; N40.0 Benign prostatic hyperplasia without lower urinary tract symptoms; I10 Essential (primary) hypertension; F17.290 Nicotine dependence, other tobacco product, uncomplicated
CPT/HCPCS: 99281

== ENCOUNTER 2019-03-26 15:51 | Emergency (ER) | payer OTHER ==
--- NOTE | 2019-03-26 17:07 | ER ---
Nurse's Notes [facility] Name: Josué Durbin Age: 78 yrs Sex: Male : 1940 Arrival Date: 03/26/2019 Time: 15:52 Bed Treatment Private MD: Sergei Lauren V Diagnosis: Encounter for adjustment and management of vascular access device Presentation: 03/26 16:28 Presenting complaint: Child states: Is currently receiving antibiotics and cancer tx ph through PICC line, reports today after flushing red port that cap came off and blood began to leak from line. States, " they haven't trained us on how to care for it yet so we weren't sure what to do." Cap noted to be missing from red port, port not clamped, no bleeding noted. Transition of care: patient was not received from another setting of care. Onset of symptoms was March 26, 2019. Risk Assessment: Do you want to hurt yourself or someone else? Patient reports no desire to harm self or others. Initial Sepsis Screen: Does the patient meet any 2 criteria? No. Patient's initial sepsis screen is negative. Does the patient have a suspected source of infection? No. Patient's initial sepsis screen is negative. Care prior to arrival: None. 16:28 Method Of Arrival: Ambulatory ph 16:28 Acuity: JERE 4 ph Historical: - Allergies: 16:35 No Known Allergies; ph - PMHx: 16:35 Alzheimers; Anemia; Dementia; enlarged prostate; GERD; Hypertension; Myeldoysplastic ph Syndrome; Pancytopenia; thrombocytopenia; - PSHx: 16:35 Cholecystectomy; Knee surgery; ph - Immunization history:: Adult Immunizations up to date. - Social history:: Smoking status: Patient/guardian denies using tobacco. - Ebola Screening: : Patient denies exposure to infectious person Patient denies travel to an Ebola-affected area in the 21 days before illness onset. Screenin:56 Abuse screen: Denies threats or abuse. Denies injuries from another. Nutritional ss screening: No deficits noted. Tuberculosis screening: Never had TB. Fall Risk None identified. Assessment: 16:56 Reassessment: Wasted 10 mL of blood from each port. Flushed with 20 mL NS to bilateral ss ports. Caps changed, and large tube gauze given to contain ports. Pt and family are grateful for care recieved. 16:58 General: Appears in no apparent distress. comfortable, Behavior is calm, cooperative. ss Pain: Denies pain. Neuro: Level of Consciousness is awake, alert, obeys commands, Oriented to person, place, time, situation. Respiratory: Airway is patent Respiratory effort is even, unlabored, Respiratory pattern is regular, symmetrical. EENT: Oral mucosa is moist. Derm: Skin is intact, is healthy with good turgor, Skin is pink, warm \\T\\ dry. normal. Vital Signs: 16:33 BP 128 / 64; Pulse 50; Resp 18; Temp 98.1; Pulse Ox 99% on R/A; Weight 72.57 kg; Height ph 5 ft. 7 in. (170.18 cm); 16:33 Body Mass Index 25.06 (72.57 kg, 170.18 cm) ph ED Course: 15:52 Patient arrived in ED. as 15:53 Sergei Lauren MD is Private Physician. as 16:33 Triage completed. ph 16:35 Arm band placed on. ph 16:36 Ros[facility] Turner [facility]C [facility]. kb 16:36 Stephen Maddox MD is Attending Physician. kb 16:56 Ariadna Rodriguez, JAMMIE is Primary Nurse. ss 16:56 Patient has correct armband on for positive identification. Bed in low position. Call ss light in reach. 16:58 No provider procedures requiring assistance completed. Patient did not have IV access ss during this emergency room visit. Administered Medications: No medications were administered Outcome: 17:06 Discharge ordered by MD. kb 17:13 Discharged to home ambulatory. ss 17:13 Condition: good 17:13 Discharge instructions given to patient, family, Instructed on discharge instructions, follow up and referral plans. Demonstrated understanding of instructions, follow-up care. 17:14 Patient left the ED. ss Signatures: Rosita Turner FNP-C CIRCUIT MANAGER-Joyce Harris as Ariadna Rodriguez, JAMMIE RN Ellen Grubbs RN RN ph
--- NOTE | 2019-03-26 17:07 | EDPHYS ---
Physician Documentation [facility] Name: Josué Durbin Age: 78 yrs Sex: Male : 1940 Arrival Date: 03/26/2019 Time: 15:52 Bed Treatment Private MD: Sergei Lauren V ED Physician Stephen Maddox HPI: 03/26 17:03 This 78 yrs old Male presents to ER via Ambulatory with complaints of PICC kb Line Issue. 17:03 Family flushed pt's PICC line and when they removed the flush they accidentally removed kb the cap as well. Brought him in to have it assessed because they weren't sure what to do. . Onset: The symptoms/episode began/occurred just prior to arrival. The patient has not experienced similar symptoms in the past. The patient has not recently seen a physician. Historical: - Allergies: 16:35 No Known Allergies; ph - PMHx: 16:35 Alzheimers; Anemia; Dementia; enlarged prostate; GERD; Hypertension; Myeldoysplastic ph Syndrome; Pancytopenia; thrombocytopenia; - PSHx: 16:35 Cholecystectomy; Knee surgery; ph - Immunization history:: Adult Immunizations up to date. - Social history:: Smoking status: Patient/guardian denies using tobacco. - Ebola Screening: : Patient denies exposure to infectious person Patient denies travel to an Ebola-affected area in the 21 days before illness onset. ROS: 17:02 Constitutional: Negative for fever, chills, and weight loss, ENT: Negative for injury, kb pain, and discharge, Neck: Negative for injury, pain, and swelling, Cardiovascular: Negative for chest pain, palpitations, and edema, Respiratory: Negative for shortness of breath, cough, wheezing, and pleuritic chest pain, Abdomen/GI: Negative for abdominal pain, nausea, vomiting, diarrhea, and constipation, Back: Negative for injury and pain, : Negative for injury, bleeding, discharge, and swelling, MS/Extremity: Negative for injury and deformity, Skin: Negative for injury, rash, and discoloration, Neuro: Negative for headache, weakness, numbness, tingling, and seizure. Exam: 17:02 Constitutional: This is a well developed, well nourished patient who is awake, alert, kb and in no acute distress. Head/Face: Normocephalic, atraumatic. ENT: Nares patent. No nasal discharge, no septal abnormalities noted. Tympanic membranes are normal and external auditory canals are clear. Oropharynx with no redness, swelling, or masses, exudates, or evidence of obstruction, uvula midline. Mucous membranes moist. Neck: Trachea midline, no thyromegaly or masses palpated, and no cervical lymphadenopathy. Supple, full range of motion without nuchal rigidity, or vertebral point tenderness. No Meningismus. Chest/axilla: Normal chest wall appearance and motion. Nontender with no deformity. No lesions are appreciated. Cardiovascular: Regular rate and rhythm with a normal S1 and S2. No gallops, murmurs, or rubs. Normal PMI, no JVD. No pulse deficits. Respiratory: Lungs have equal breath sounds bilaterally, clear to auscultation and percussion. No rales, rhonchi or wheezes noted. No increased work of breathing, no retractions or nasal flaring. Abdomen/GI: Soft, non-tender, with normal bowel sounds. No distension or tympany. No guarding or rebound. No evidence of tenderness throughout. Skin: Warm, dry with normal turgor. Normal color with no rashes, no lesions, and no evidence of cellulitis. Neuro: Awake and alert, GCS 15, oriented to person, place, time, and situation. Cranial nerves II-XII grossly intact. Motor strength 5/5 in all extremities. Sensory grossly intact. Cerebellar exam normal. Normal gait. 17:02 Musculoskeletal/extremity: PICC line to right upper arm. Vital Signs: 16:33 BP 128 / 64; Pulse 50; Resp 18; Temp 98.1; Pulse Ox 99% on R/A; Weight 72.57 kg; Height ph 5 ft. 7 in. (170.18 cm); 16:33 Body Mass Index 25.06 (72.57 kg, 170.18 cm) ph MDM: 16:36 Patient medically screened. kb 17:01 Data reviewed: vital signs, nurses notes. Data interpreted: Pulse oximetry: on room air kb is 99 %. Interpretation: normal. Counseling: I had a detailed discussion with the patient and/or guardian regarding: the historical points, exam findings, and any diagnostic results supporting the discharge/admit diagnosis, the need for outpatient follow up, a family practitioner, to return to the emergency department if symptoms worsen or persist or if there are any questions or concerns that arise at home. 17:04 ED course: Nurse able to withdraw blood from both ports and they flush well. Cap kb replaced. . 03/26 16:43 Order name: Alexandr. Order: pull 10cc of waste blood, flush picc and apply new cap; kb Complete Time: 16:56 Administered Medications: No medications were administered Disposition: 03/27 07:00 Co-signature as Attending Physician, Stephen Maddox MD I agree with the assessment and kdr plan of care. Disposition: 03/26/19 17:06 Discharged to Home. Impression: Encounter for adjustment and management of vascular access device. - Condition is Stable. - Discharge Instructions: PICC Home Guide. - Medication Reconciliation Form, Thank You Letter, Antibiotic Education, Prescription Opioid Use form. - Follow up: Emergency Department; When: As needed; Reason: Worsening of condition. Follow up: Private Physician; When: 2 - 3 days; Reason: Recheck today's complaints, Continuance of care, Re-evaluation by your physician. Signatures: Rosita Turner, RN ONCOLOGY-C RN ONCOLOGY-Ckb Stephen Maddox MD MD [facility] Ariadna Rodriguez, JAMMIE RN ss Ellen Grubbs RN RN ph Corrections: (The following items were deleted from the chart) 03/26 17:14 17:06 03/26/2019 17:06 Discharged to Home. Impression: Encounter for adjustment and ss management of vascular access device. Condition is Stable. Forms are Medication Reconciliation Form, Thank You Letter, Antibiotic Education, Prescription Opioid Use. Follow up: Emergency Department; When: As needed; Reason: Worsening of condition. Follow up: Private Physician; When: 2 - 3 days; Reason: Recheck today's complaints, Continuance of care, Re-evaluation by your physician. kb
[2019-03-26 17:49] VITALS: BP 128/64; TEMP 98.1; O2SAT 99
== END 2019-03-26 17:14 | disposition home or self-care (01) ==
LOC: ER 15:51
DX: Z45.2 Encounter for adjustment and management of vascular access device (principal); G30.9 Alzheimer's disease, unspecified; F02.80 Dementia in other diseases classified elsewhere, unspecified severity, without behavioral disturbance, psychotic disturbance, mood disturbance, and anxiety; I10 Essential (primary) hypertension
CPT/HCPCS: 99281

== ENCOUNTER 2019-04-11 06:07 | Emergency (ER) | payer OTHER ==
[2019-04-11 06:42] LABS: Urine Appearance TURBID; Urine Bilirubin NEGATIVE (NEG); Urine Blood 3+ (NEG); Urine Color RED; Urine Glucose NEGATIVE (NEG); Urine Protein 1+ (NEG); Urine Specific Gravity 1.015 (1.005-1.030)
[2019-04-11 06:57] LABS: Urine Bacteria <20 /HPF (NONE SEEN); Urine RBC TNTC /HPF (NONE SEEN)
[2019-04-11 06:58] LABS: Urine Culture Reflex Order REFLEXED; Urine Mucus 2+ /HPF (NONE SEEN)
[2019-04-11 07:21] LABS: Potassium 3.6 mmol/L (3.5-5.1)
[2019-04-11 07:23] LABS: Absolute Lymphocytes (CBC) 0.9 K/uL (0.7-4.9); Absolute Monocytes 0.2 K/uL (0.1-1.3); Absolute Neutrophil 0.8 K/uL (1.8-8.0); Basophils % 0.3 % (0-1.3); Eosinophils % 0.9 % (0-4.4); Hematocrit 29.6 % (39.6-49.0); Lymphocytes % 47.2 % (15.3-44.8); MPV 8.9 fL (7.6-11.3); Monocytes % 11.3 % (3.3-12.3); RBC Red Blood Cell Count 3.39 M/uL (4.33-5.43)
[2019-04-11] MEDS ORDERED: NACL 0.9% IRR SOLN 2,000 ML IRR ONE (07:23)
[2019-04-11] MEDS ORDERED: LIDOCAINE VISCOUS 2% SOLN 15 ML UDC ONE (07:39)
--- NOTE | 2019-04-11 08:00 | RAD REPORT ---
EXAM DESCRIPTION: CT - Abdomen Pelvis Wo Contrast - 04/11/2019 7:44 am CLINICAL HISTORY: Back pain, abdominal pain, hematuria, history of leukemia and myelodysplastic synd luis COMPARISON: CT study September 2018 TECHNIQUE: Axial [address] imaging of the abdomen and pelvis was performed without IV contrast. No IV contrast was given because of allergy, abnormal renal function, patient refusal or physician re quest. No oral contrast given. All CT scans are performed using dose optimization technique as appropriate and may include automated exposure control or mA/KV adjustment according to patient size. FINDINGS: No acute lung parenchymal process. Patient has very minimal bilateral pleural effusions an d a minimal amount of pericardial thickening or effusion. The liver, spleen and pancreas show no suspicious findings on non-contrast imaging. Cholecystectomy c lips are present. No biliary tree dilatation. No hydronephrosis or suspicious renal mass. No obstructing or nonobstructing calculi. No abnormal per inephric stranding. No significant adrenal finding. Isodense renal masses and pyelonephritis cannot b e excluded in the absence of IV contrast. Urinary bladder is fully contracted around a Gabriel catheter . No bladder calculi seen. No gross abnormality of the prostate gland. Minimal hiatal hernia is present. No gastric wall thickening or mass. No dilated large or small bowel seen. No appendicitis. Patient has a mild moderately prominent roland diverticulosis pattern. No divert iculitis or acute colon process seen. No free air, free fluid or inflammatory stranding. No mass or bulky lymphadenopathy seen. Small fat filled right inguinal hernia present. Disc and bone degenerative changes are present. No pathologic bone process. Prominent arterial tree calcifications are present. 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 IMPRESSION: No bowel obstruction, free air, mass or other emergent finding. No abnormality identified to explain hematuria. Assessment is limited in the absence of contrast. No acute GI finding. Gallbladder is absent. Trace amount of bilateral pleural fluid. Full assessment is limited is the absence of IV contrast.
--- NOTE | 2019-04-11 08:08 | EDPHYS ---
Physician Documentation [facility] Name: Josué Durbin Age: 78 yrs Sex: Male : 1940 Arrival Date: 04/11/2019 Time: 06:11 Bed 16 Private MD: Sergei Lauren V ED Physician Jimi Pavon HPI: 04/11 08:21 This 78 yrs old Male presents to ER via Ambulatory with complaints of jr8 Bleeding. 08:21 The patient presents with urinary symptoms, hematuria. Onset: The symptoms/episode jr8 began/occurred acutely, yesterday. Modifying factors: The symptoms are alleviated by nothing, the symptoms are aggravated by urinating. Associated signs and symptoms: Pertinent positives: cramping. Severity of symptoms: At their worst the symptoms were mild. The patient has not experienced similar symptoms in the past. The patient has not recently seen a physician. Patient with MDS history currently undergoing treatment. Requiring chronic transfusions at this point. Hematuria that started yesterday . Historical: - Allergies: 06:43 No Known Allergies; - Home Meds: 06:43 donepezil 23 mg Oral tab 1 tab once daily for Mild to Moderate Alzheimer's Type Dementia [Active]; finasteride 5 mg Oral tab 1 tab once daily [Active]; gabapentin 100 mg Oral tab 1 caps 3 times per day [Active]; isosorbide mononitrate 60 mg Oral Tb24 1 tab once daily [Active]; magnesium oxide 400 mg Oral tab daily [Active]; memantine 5 mg Oral tab 1 tabs daily [Active]; Levaquin 500 mg Oral tab 1 tab once daily [Active]; Myrbetriq 25 mg Oral Tb24 1 tab once daily [Active]; omeprazole 40 mg Oral cpDR 1 cap once daily [Active]; quetiapine 100 mg Oral tab 1 tab nightly [Active]; posaconazole 100 mg Oral 3 tabs once daily [Active]; valacyclovir 500 mg Oral tab 1 tab once daily [Active]; Lasix 20 mg Oral tab 1 tab once daily [Active]; tamsulosin 0.4 mg oral cp24 1 cap once daily [Active]; - PMHx: 06:43 Alzheimers; Anemia; Dementia; enlarged prostate; GERD; Hypertension; Myeldoysplastic wh Syndrome; Pancytopenia; thrombocytopenia; - Immunization history:: Adult Immunizations up to date. - Social history:: Smoking status: Patient uses tobacco products, cigars. - Ebola Screening: : Patient negative for fever greater than or equal to 101.5 degrees Fahrenheit, and additional compatible Ebola Virus Disease symptoms Patient denies exposure to infectious person. ROS: 08:21 Eyes: Negative for injury, pain, redness, and discharge, ENT: Negative for injury, jr8 pain, and discharge, Neck: Negative for injury, pain, and swelling, Cardiovascular: Negative for chest pain, palpitations, and edema, Respiratory: Negative for shortness of breath, cough, wheezing, and pleuritic chest pain, Back: Negative for injury and pain, MS/Extremity: Negative for injury and deformity, Skin: Negative for injury, rash, and discoloration, Neuro: Negative for headache, weakness, numbness, tingling, and seizure. 08:21 Abdomen/GI: Positive for abdominal pain, Negative for nausea, vomiting, and diarrhea, abdominal distension, anorexia, dysphagia, hematemesis, black/tarry stool, rectal pain, rectal bleeding, bowel incontinence, flatulence. 08:21 : Positive for hematuria. Exam: 08:21 Eyes: Pupils equal round and reactive to light, extra-ocular motions intact. Lids and jr8 lashes normal. Conjunctiva and sclera are non-icteric and not injected. Cornea within normal limits. Periorbital areas with no swelling, redness, or edema. ENT: Nares patent. No nasal discharge, no septal abnormalities noted. Tympanic membranes are normal and external auditory canals are clear. Oropharynx with no redness, swelling, or masses, exudates, or evidence of obstruction, uvula midline. Mucous membranes moist. Neck: Trachea midline, no thyromegaly or masses palpated, and no cervical lymphadenopathy. Supple, full range of motion without nuchal rigidity, or vertebral point tenderness. No Meningismus. Cardiovascular: Regular rate and rhythm with a normal S1 and S2. No gallops, murmurs, or rubs. Normal PMI, no JVD. No pulse deficits. Respiratory: Lungs have equal breath sounds bilaterally, clear to auscultation and percussion. No rales, rhonchi or wheezes noted. No increased work of breathing, no retractions or nasal flaring. Back: No spinal tenderness. No costovertebral tenderness. Full range of motion. Skin: Warm, dry with normal turgor. Normal color with no rashes, no lesions, and no evidence of cellulitis. MS/ Extremity: Pulses equal, no cyanosis. Neurovascular intact. Full, normal range of motion. Neuro: Awake and alert, GCS 15, oriented to person, place, time, and situation. Cranial nerves II-XII grossly intact. Motor strength 5/5 in all extremities. Sensory grossly intact. Cerebellar exam normal. Normal gait. 08:21 Abdomen/GI: Inspection: abdomen appears normal, Bowel sounds: active, all quadrants, Palpation: soft, in all quadrants, mild abdominal tenderness, in the suprapubic area, right lower quadrant and left lower quadrant, mass, is not appreciated, rebound tenderness, is not appreciated, voluntary guarding, is not appreciated, involuntary guarding, is not appreciated, no appreciated organomegaly, Indicators: McBurney's point is not tender, Theodore's sign is negative, Rovsing's sign is negative, Liver: tenderness, is not appreciated. Vital Signs: 06:29 BP 191 / 75; Pulse 55; Resp 19; Temp 98.4; Pulse Ox 99% on R/A; wh 07:30 BP 182 / 72; Pulse 56; Resp 18; Temp 97.8; Pulse Ox 99% on R/A; ph 08:30 BP 181 / 76; Pulse 54; Resp 16; Temp 97.8; Pulse Ox 100% on R/A; ph MDM: 06:15 Patient medically screened. jr8 08:23 Data reviewed: vital signs, nurses notes, lab test result(s), radiologic studies, CT jr8 scan, and as a result, I will discharge patient. Data interpreted: Pulse oximetry: on room air is 99 %. Interpretation: normal. Counseling: I had a detailed discussion with the patient and/or guardian regarding: the historical points, exam findings, and any diagnostic results supporting the discharge/admit diagnosis, lab results, radiology results, the need for outpatient follow up, a urologist, to return to the emergency department if symptoms worsen or persist or if there are any questions or concerns that arise at home. ED course: Discussed with family that his blood work remains stable for his condition after reviewing with family his most recent labs from oncology department. Mild pink tinged urine at most. No acute CT findings. Most likely hematuria being caused secondarily from his MDS. Need f/u with oncology and urology. Family and patient grateful and agrees with plan . 04/11 06:37 Order name: Urinalysis W/Microscopic; Complete Time: 07:09 [facility] 04/11 06:53 Order name: CBC with Diff [facility] 04/11 06:53 Order name: Basic Metabolic Panel; Complete Time: 07:24 jr8 04/11 07:00 Order name: Urine Culture [facility] 04/11 06:53 Order name: Three way pratt irrigation; Complete Time: 07:38 jr8 04/11 07:24 Order name: CBC Smear Scan [facility] 04/11 07:26 Order name: CT Abd/Pelvis - Without Cont; Complete Time: 08:03 jr8 Administered Medications: No medications were administered Disposition: 04/11/19 08:06 Discharged to Home. Impression: Hematuria. - Condition is Stable. - Discharge Instructions: Hematuria, Adult. - Medication Reconciliation Form, Thank You Letter, Antibiotic Education, Prescription Opioid Use form. - Follow up: Private Physician; When: 2 - 3 days; Reason: Recheck today's complaints, Continuance of care, Re-evaluation by your physician. - Problem is new. - Symptoms have improved. Addendum: 04/14/2019 01:59 Co-signature as Attending Physician, Jimi Pavon MD. g s Signatures: Dispatcher [employer] [facility] Ariadna Rodriguez RN RN Giovany Schmidt PA PA jr8 Zoë Swann Jimi Pavon MD MD gs Corrections: (The following items were deleted from the chart) 04/11 06:37 06:22 URINALYSIS+U.LAB.BRZ ordered. [facility] 06:37 06:22 UA MICROSCOPIC+U.LAB.BRZ ordered. [facility] 08:46 08:06 04/11/2019 08:06 Discharged to Home. Impression: Hematuria. Condition is Stable. ss Forms are Medication Reconciliation Form, Thank You Letter, Antibiotic Education, Prescription Opioid Use. Follow up: Private Physician; When: 2 - 3 days; Reason: Recheck today's complaints, Continuance of care, Re-evaluation by your physician. Problem is new. Symptoms have improved. jr8
--- NOTE | 2019-04-11 08:08 | ER ---
Nurse's Notes [facility] Name: Josué Durbin Age: 78 yrs Sex: Male : 1940 Arrival Date: 04/11/2019 Time: 06:11 Bed 16 Private MD: Sergei Lauren V Diagnosis: Hematuria Presentation: 04/11 06:25 Presenting complaint: states: states Pt is complaining of lower abdominal pain, wh back pain and bloody urine that started this morning. Pt has Hx of leukemia, myelodysplastic Syndrome, Anemia, Neutropenia, Pancytopenia receiving weekly transfusion. Transition of care: patient was not received from another setting of care. Onset of symptoms was April 11, 2019. Risk Assessment: Do you want to hurt yourself or someone else? Patient reports no desire to harm self or others. Initial Sepsis Screen: Does the patient meet any 2 criteria? No. Patient's initial sepsis screen is negative. Does the patient have a suspected source of infection? No. Patient's initial sepsis screen is negative. Care prior to arrival: None. 06:25 Method Of Arrival: Ambulatory 06:25 Acuity: JERE 3 Historical: - Allergies: 06:43 No Known Allergies; - Home Meds: 06:43 donepezil 23 mg Oral tab 1 tab once daily for Mild to Moderate Alzheimer's Type Dementia [Active]; finasteride 5 mg Oral tab 1 tab once daily [Active]; gabapentin 100 mg Oral tab 1 caps 3 times per day [Active]; isosorbide mononitrate 60 mg Oral Tb24 1 tab once daily [Active]; magnesium oxide 400 mg Oral tab daily [Active]; memantine 5 mg Oral tab 1 tabs daily [Active]; Levaquin 500 mg Oral tab 1 tab once daily [Active]; Myrbetriq 25 mg Oral Tb24 1 tab once daily [Active]; omeprazole 40 mg Oral cpDR 1 cap once daily [Active]; quetiapine 100 mg Oral tab 1 tab nightly [Active]; posaconazole 100 mg Oral 3 tabs once daily [Active]; valacyclovir 500 mg Oral tab 1 tab once daily [Active]; Lasix 20 mg Oral tab 1 tab once daily [Active]; tamsulosin 0.4 mg oral cp24 1 cap once daily [Active]; - PMHx: 06:43 Alzheimers; Anemia; Dementia; enlarged prostate; GERD; Hypertension; Myeldoysplastic wh Syndrome; Pancytopenia; thrombocytopenia; - Immunization history:: Adult Immunizations up to date. - Social history:: Smoking status: Patient uses tobacco products, cigars. - Ebola Screening: : Patient negative for fever greater than or equal to 101.5 degrees Fahrenheit, and additional compatible Ebola Virus Disease symptoms Patient denies exposure to infectious person. Screenin:32 Abuse screen: Denies threats or abuse. Denies injuries from another. Nutritional wh screening: No deficits noted. Tuberculosis screening: No symptoms or risk factors identified. Fall Risk Ambulatory Aid- Crutches/Cane/Walker (15 pts). Assessment: 06:52 General: Appears in no apparent distress. Behavior is calm, cooperative, appropriate wh for age. Pain: Complains of pain in suprapubic area Pain radiates to back Pain currently is 4 out of 10 on a pain scale. Pain began 1 hour ago. Neuro: Level of Consciousness is awake, alert, obeys commands, Oriented to person, place, time, situation. Cardiovascular: Heart tones S1 S2. Respiratory: Airway is patent Respiratory effort is even, unlabored, Respiratory pattern is regular, symmetrical, Breath sounds are clear bilaterally. GI: Abdomen is flat, non-distended, Abd is soft and non tender. : Urine is blood tinged, Reports bloody urine, suprapubic pain that radiates to the back that started this morning. EENT: No signs and/or symptoms were reported regarding the EENT system. Derm: Skin is intact, is healthy with good turgor, Skin is pink, warm \T\ dry. normal. Musculoskeletal: Range of motion: intact in all extremities. 07:02 Cardiovascular: Edema is 1+ to left ankle and right ankle. wh 07:39 Reassessment: Patient appears in no apparent distress at this time. Patient and/or ph family updated on plan of care and expected duration. Pain level reassessed. Patient is alert, oriented x 3, equal unlabored respirations, skin warm/dry/pink. Pt c/o pain in penis r/t 3 way Gabriel, ERP notified, viscous lidocaine applied to area (see MAR), pt taken for CT scan via stretcher, irrigation paused for testing. 08:12 Reassessment: Patient appears in no apparent distress at this time. Patient and/or ph family updated on plan of care and expected duration. Pain level reassessed. Patient is alert, oriented x 3, equal unlabored respirations, skin warm/dry/pink. ERP at bedside, bladder irrigation continued, no clots noted and urine/ irrigant noted to be clear in drainage tube, pt to be d/c home after removal of Gabriel catheter. 08:36 Reassessment: Patient appears in no apparent distress at this time. Patient and/or ph family updated on plan of care and expected duration. Pain level reassessed. Patient is alert, oriented x 3, equal unlabored respirations, skin warm/dry/pink. Gabriel d/c, pt d/c home w/ family. Vital Signs: 06:29 BP 191 / 75; Pulse 55; Resp 19; Temp 98.4; Pulse Ox 99% on R/A; wh 07:30 BP 182 / 72; Pulse 56; Resp 18; Temp 97.8; Pulse Ox 99% on R/A; ph 08:30 BP 181 / 76; Pulse 54; Resp 16; Temp 97.8; Pulse Ox 100% on R/A; ph ED Course: 06:11 Patient arrived in ED. es 06:12 Sergei Lauren MD is Private Physician. es 06:13 Zoë Swann is Primary Nurse. wh 06:15 Giovany Schmidt PA is PHCP. jr8 06:15 Jimi Pavon MD is Attending Physician. jr8 06:29 Triage completed. wh 06:33 Arm band placed on right wrist. wh 06:34 Patient has correct armband on for positive identification. Fall risk band placed. wh Placed in gown. Bed in low position. Call light in reach. Side rails up X 1. Pulse ox on. NIBP on. 06:57 Accessed PICC line. Pt has MARITZA PICC, flushed and capped. wh 07:20 3-way catheter inserted, using sterile technique, 20 Fr. Specimen obtained. inserted by dion Patel ED tech. 07:40 Patient moved to [place] via stretcher. sw 07:43 CT completed. Patient tolerated procedure well. Patient moved back from CT. sw 07:44 CT Abd/Pelvis - Without Cont In Process Unspecified. EDMS 08:39 No provider procedures requiring assistance completed. Patient did not have IV access ph during this emergency room visit. Administered Medications: No medications were administered Outcome: 08:06 Discharge ordered by MD. bautista 08:39 Discharged to home via wheelchair. 08:39 Condition: good 08:39 Discharge instructions given to patient, family, Instructed on discharge instructions, follow up and referral plans. Demonstrated understanding of instructions, follow-up care. 08:46 Patient left the ED. Signatures: Dispatcher [employer] Diana Ordonez Shelby, RN RN Giovany Schmidt PA PA jrEllen Muhammad RN RN Kia Gregory Winsy Corrections: (The following items were deleted from the chart) 06:33 06:33 Arm band placed on left wrist. [facility]
[2019-04-11 08:53] VITALS: TEMP 97.8
[2019-04-11 08:54] VITALS: BP 181/76; O2SAT 100
[2019-04-11 09:42] LABS: Anisocytosis 1+; Blood Morphology Comment NOTED (NOT SEEN); Platelet Estimate DECR; Urine White Blood Cell Casts DIFF
== END 2019-04-11 08:46 | disposition home or self-care (01) ==
LOC: ER 06:07
DX: R31.9 Hematuria, unspecified (principal); I10 Essential (primary) hypertension; G30.9 Alzheimer's disease, unspecified; F02.80 Dementia in other diseases classified elsewhere, unspecified severity, without behavioral disturbance, psychotic disturbance, mood disturbance, and anxiety; D46.9 Myelodysplastic syndrome, unspecified; Z72.0 Tobacco use
CPT/HCPCS: 36415; 74176; 80048; 81001; 85025; 87086; 87088; 99284

== ENCOUNTER 2019-04-13 09:48 | Inpatient (IN) | payer OTHER ==
[2019-04-13 10:28] LABS: Absolute Lymphocytes (CBC) 0.3 K/uL (0.7-4.9); Absolute Monocytes 0.1 K/uL (0.1-1.3); Absolute Neutrophil 0.9 K/uL (1.8-8.0); Basophils % 0.2 % (0-1.3); Eosinophils % 0.2 % (0-4.4); Hematocrit 28.6 % (39.6-49.0); Lymphocytes % 20.8 % (15.3-44.8); Monocytes % 6.6 % (3.3-12.3); RBC Red Blood Cell Count 3.23 M/uL (4.33-5.43)
[2019-04-13 10:30] LABS: Protime INR 1.22
--- NOTE | 2019-04-13 10:33 | RAD REPORT ---
EXAM DESCRIPTION: CT - Head Brain Wo Cont - 04/13/2019 10:04 am CLINICAL HISTORY: Seizure, transient alteration of awareness COMPARISON: CT head January 2018 TECHNIQUE: Axial 5 mm thick images of the head were obtained without IV contrast. All CT scans are performed using dose optimization technique as appropriate and may include automated exposure control or mA/KV adjustment according to patient size. FINDINGS: No intracranial hemorrhage, mass, edema or shift of mid-line structures. No acute infarcti on changes seen. No cortical edema or sulcal effacement. Atrophy and chronic ischemic changes are pre sent not significantly different from comparison. Ventricles are in proportion to volume loss. Mastoid air cells and visualized portions of the paranasal sinuses are clear. No acute bony findings. IMPRESSION: Negative non-contrast CT head examination for acute finding Atrophy and chronic ischemic changes are present matching comparison.
[2019-04-13 10:50] LABS: ALT/SGPT 16 U/L (12-78); AST/SGOT 16 U/L (15-37); Alkaline Phosphatase 78 U/L (45-117); BUN Blood Urea Nitrogen 13 mg/dL (7-18); Bicarbonate 27 mmol/L (21-32); Bilirubin Direct 0.2 mg/dL (0-0.2); Bilirubin Total 0.6 mg/dL (0.2-1.0); Glucose Level 117 mg/dL (74-106); Magnesium 1.9 mg/dL (1.8-2.4); NT PRO-BNP 1487 pg/mL (<450); Potassium 3.4 mmol/L (3.5-5.1); Protein, Total 6.6 g/dL (6.4-8.2); Sodium Level 140 mmol/L (136-145); Troponin (Emerg Dept Use Only) 0.07 ng/mL (0.0-0.045)
--- NOTE | 2019-04-13 11:01 | RAD REPORT ---
EXAM DESCRIPTION: RAD - Chest Single View - 04/13/2019 10:07 am CLINICAL HISTORY: Abdominal pain, shortness of breath COMPARISON: February 2018 TECHNIQUE: AP portable chest image was obtained 1005 hours . FINDINGS: No peripheral mass or consolidation. Lung volumes are low compared to the prior study. Thi s accentuates the baseline interstitial pattern. In this setting, early interstitial edema or infiltr ate are potentially masked. No significant failure or volume overload. Heart and vasculature are norm al. No measurable pleural effusion and no pneumothorax. No acute bony abnormality seen. No acute aort ic findings suspected. IMPRESSION: Prominent interstitial pattern accentuated by shallow inspiration. Mild interstitial edema or infiltrate could be masked in this setting.
[2019-04-13 11:14] LABS: Blood Morphology Comment NOT SEEN (NOT SEEN); Platelet Estimate DECR; Urine White Blood Cell Casts OK
[2019-04-13 11:29] LABS: Urine Blood 3+ (NEG); Urine Glucose NEGATIVE (NEG); Urine Protein 2+ (NEG); Urine pH 7.5 (5.0-7.0)
[2019-04-13 12:54] LABS: Urine Amorphous Sediment TRACE /HPF (NONE SEEN); Urine Bacteria <20 /HPF (NONE SEEN); Urine Culture Reflex Order NOT NEEDED; Urine RBC >50 /HPF (NONE SEEN)
--- NOTE | 2019-04-13 13:08 | EDPHYS ---
Physician Documentation [facility] Name: Josué Durbin Age: 78 yrs Sex: Male : 1940 Arrival Date: 04/13/2019 Time: 09:46 Bed 4 Private MD: ED Physician Stephen Maddox HPI: 04/13 10:38 This 78 yrs old Male presents to ER via EMS with complaints of Altered Mental jr8 Status, Seizure. 10:38 The patient presents with decreased mental status, seizure activity. Onset: The jr8 symptoms/episode began/occurred acutely, today. Possible causes: unknown. Associated signs and symptoms: Pertinent positives: abdominal pain. Current symptoms: In the emergency department the patient's symptoms have improved, mildly. Patient's baseline: Neuro: alert and fully oriented, Motor: no deficits, Ambulation: walks without assistance, Speech: normal. The patient has not experienced similar symptoms in the past. The patient has been recently seen by a physician:. Patient with MDS history currently undergoing treatment under oncology department down here and at [facility]. Had come to ED the other day for abdominal discomfort and hematuria with difficulty urinating. Patient had labs, CT, and Gabriel with irrigation completed. Had felt much better. No acute findings at this time. Patients family stated that he had been doing better until today. Started to have penile pain, hematuria and abdominal pain again. EMS called at that time. Found to be hypertensive on scene. Was given labetalol and fentanyl. En route started to have seizure and bradycardia. Ended up getting versed and atropine. Patient upon arrival here was unresponsive but maintaining airway. Would grimace to pain . Historical: - Allergies: 09:53 No Known Allergies; hj - PMHx: 09:53 Alzheimers; Anemia; Dementia; enlarged prostate; GERD; Hypertension; Myeldoysplastic hj Syndrome; Pancytopenia; thrombocytopenia; Leukemia; - PSHx: 09:53 Unable to obtain; hj - Immunization history:: Adult Immunizations unknown. - Social history:: Smoking status: unknown. - Ebola Screening: : Patient negative for fever greater than or equal to 101.5 degrees Fahrenheit, and additional compatible Ebola Virus Disease symptoms Patient denies exposure to infectious person Patient denies travel to an Ebola-affected area in the 21 days before illness onset. ROS: 10:38 Unable to obtain ROS due to altered mental status. jr8 Exam: 10:38 Eyes: Pupils equal round and reactive to light, extra-ocular motions intact. Lids and jr8 lashes normal. Conjunctiva and sclera are non-icteric and not injected. Cornea within normal limits. Periorbital areas with no swelling, redness, or edema. ENT: Nares patent. No nasal discharge, no septal abnormalities noted. Oropharynx with no redness, swelling, or masses, exudates, or evidence of obstruction, uvula midline. Mucous membranes moist. Neck: Trachea midline, no thyromegaly or masses palpated, and no cervical lymphadenopathy. Supple, full range of motion without nuchal rigidity Cardiovascular: Regular rate and rhythm with a normal S1 and S2. No gallops, murmurs, or rubs. Normal PMI, no JVD. No pulse deficits. Respiratory: Lungs have equal breath sounds bilaterally, clear to auscultation and percussion. No rales, rhonchi or wheezes noted. No increased work of breathing, no retractions or nasal flaring. Abdomen/GI: Soft with normal bowel sounds. No distension or tympany. Patient would grimace to palpation of the lower abdomen Back: No external trauma. No step offs felt Skin: Warm, dry with normal turgor. Normal color with no rashes, no lesions, and no evidence of cellulitis. MS/ Extremity: Pulses equal, no cyanosis. Neurovascular intact. Full, normal range of motion. Neuro: Patient postictal at this time. Withrdawals from pain. Unable to otherwise to do a complete neurological assessment due to current state Vital Signs: 09:51 BP 163 / 69; Pulse 63; Resp 18; Temp 98.1(TE); Pulse Ox 99% on 2 lpm NC; Weight 72.57 hj kg; Height 5 ft. 8 in. (172.72 cm); 10:22 BP 155 / 65; Pulse 88; Resp 18; Pulse Ox 100% on 2 lpm NC; hj 11:11 BP 188 / 85; Pulse 52; Resp 18; Pulse Ox 100% on 2 lpm NC; hj 12:53 BP 145 / 66; Pulse 51; Resp 18; Pulse Ox 100% on 2 lpm NC; hj 13:19 BP 153 / 62; Pulse 48; Resp 18; Pulse Ox 100% on 2 lpm NC; hj 13:53 BP 159 / 70; Pulse 47; Resp 18; Pulse Ox 100% on 2 lpm NC; hj 14:42 BP 167 / 68; Pulse 49; Resp 18; Pulse Ox 100% on 2 lpm NC; hj 09:51 Body Mass Index 24.33 (72.57 kg, 172.72 cm) [place] Coma Score: 10:38 Eye Response: none(1). Verbal Response: none(1). Motor Response: withdraws from jr8 pain(4). Total: 6. MDM: 09:47 Patient medically screened. jr8 11:06 Data reviewed: vital signs, nurses notes, lab test result(s), EKG, radiologic studies, jr8 CT scan. Data interpreted: Pulse oximetry: on room air is 100 %. Interpretation: normal. Counseling: I had a detailed discussion with the patient and/or guardian regarding: the historical points, exam findings, and any diagnostic results supporting the discharge/admit diagnosis, lab results, radiology results, the need to transfer to another facility, [facility] does not immediately have the required specialist. ED course: Patient doing better. Now awake, alert, and oriented to person, place, time, event. . 11:07 ED course: Initiating transfer to [facility] for further neurological evaluation . 8 13:04 ED course: Patient doing better. Alert to verbal stimulus at this point. Knows the [facility] family members around him and his name. Discussed case with Dr. Watkins who will see him. Also called Dr. Mcginnis who is assistant corporation counsel for Dr. Lauren. Good with accepting patient. Dr. Boston also was consulted and good with this . 04/13 09:47 Order name: Basic Metabolic Panel; Complete Time: 11:00 04/13 09:47 Order name: CBC with Diff; Complete Time: 11:20 04/13 09:47 Order name: LFT's; Complete Time: 11:00 04/13 09:47 Order name: Magnesium; Complete Time: 11:00 04/13 09:47 Order name: NT PRO-BNP; Complete Time: 11:00 04/13 09:47 Order name: PT-INR; Complete Time: 10:48 04/13 09:47 Order name: Troponin (emerg Dept Use Only); Complete Time: 11:00 [facility] 04/13 09:47 Order name: XRAY Chest (1 view); Complete Time: 11:05 [facility] 04/13 09:47 Order name: EKG; Complete Time: 09:50 [facility] 04/13 09:47 Order name: CT Head Brain wo Cont; Complete Time: 10:38 [facility] 04/13 10:43 Order name: CBC Smear Scan; Complete Time: 11:20 [facility] 04/13 11:08 Order name: Urine Microscopic Only; Complete Time: 12:56 [facility] 04/13 11:18 Order name: Urine Dipstick--Ancillary (enter results); Complete Time: 11:33 eb 04/13 14:00 Order name: CONS Physician Consult [facility] 04/13 09:47 Order name: Cardiac monitoring; Complete Time: 09:57 [facility] 04/13 09:47 Order name: EKG - Nurse/Tech; Complete Time: 10:21 [facility] 04/13 09:47 Order name: IV Saline Lock; Complete Time: 09:57 [facility] 04/13 09:47 Order name: Labs collected and sent; Complete Time: 10:21 [facility] 04/13 09:47 Order name: O2 Per Protocol; Complete Time: 09:57 [facility] 04/13 09:47 Order name: O2 Sat Monitoring; Complete Time: 09:57 [facility] 04/13 14:00 Order name: CONS Physician Consult [facility] 04/13 14:00 Order name: Regular EDMS Administered Medications: No medications were administered Disposition: 04/13/19 13:06 Hospitalization ordered by Sergei Lauren for Inpatient Admission. Preliminary diagnosis are Seizure (new onset), Pancytopenia, Hematuria, Bradycardia, unspecified. - Bed requested for Telemetry/MedSurg (Inpatient). - Status is Inpatient Admission. hj - Condition is Stable. - Problem is new. - Symptoms have improved. UTI on Admission? No Addendum: 04/15/2019 08:07 Co-signature as Attending Physician, Stephen Maddox MD I agree with the assessment and k dr plan of care. Signatures: Dispatcher [facility] Brenda Welch RN RN Stephen Maddox MD MD [facility] Giovany Schmidt PA PA [facility] Poncho Banerjee RN RN Corrections: (The following items were deleted from the chart) 04/13 14:39 13:06 Hospitalization Ordered by Sergei Lauren MD for Inpatient Admission. Preliminary dw diagnosis is Seizure (new onset); Pancytopenia; Hematuria; Bradycardia, unspecified. Bed requested for Telemetry/MedSurg (Inpatient). Status is Inpatient Admission. Condition is Stable. Problem is new. Symptoms have improved. UTI on Admission? No. jr8 15:24 14:39 04/13/2019 13:06 Hospitalization Ordered by Sergei Lauren MD for Inpatient hj Admission. Preliminary diagnosis is Seizure (new onset); Pancytopenia; Hematuria; Bradycardia, unspecified. Bed requested for Telemetry/MedSurg (Inpatient). Status is Inpatient Admission. Condition is Stable. Problem is new. Symptoms have improved. UTI on Admission? No. dw
--- NOTE | 2019-04-13 13:08 | ER ---
Nurse's Notes [facility] Name: Josué Durbin Age: 78 yrs Sex: Male : 1940 Arrival Date: 04/13/2019 Time: 09:46 Bed 4 Private MD: Diagnosis: Seizure (new onset);Pancytopenia;Hematuria;Bradycardia, unspecified Presentation: 04/13 09:47 Presenting complaint: EMS states: was called for AMS and severe abd pain, penile pain; hj EMS noticed seizure on scene; BP- 250/170; 15 mg lebatalol; 4 zofran IV; 25 fentanyl; seizure episode started again; gave 5 of versed; HR- drops to 30's; 0.5 of atropin give; 20 g L AC; pt was unresponsive on arriva;- Bgl- 152;. Transition of care: patient was not received from another setting of care. Onset of symptoms was April 13, 2019. Risk Assessment: Do you want to hurt yourself or someone else? Patient reports no desire to harm self or others. Initial Sepsis Screen: Does the patient meet any 2 criteria? No. Patient's initial sepsis screen is negative. Does the patient have a suspected source of infection? No. Patient's initial sepsis screen is negative. Care prior to arrival: None. 09:47 Method Of Arrival: EMS: [facility] 09:47 Acuity: JERE 2 hj Triage Assessment: 09:51 General: Appears in no apparent distress. uncomfortable, Behavior is calm, cooperative, hj appropriate for age. Pain: Unable to use pain scale. Patient is unresponsive. Neuro: Level of Consciousness is unresponsive. Historical: - Allergies: 09:53 No Known Allergies; hj - PMHx: 09:53 Alzheimers; Anemia; Dementia; enlarged prostate; GERD; Hypertension; Myeldoysplastic hj Syndrome; Pancytopenia; thrombocytopenia; Leukemia; - PSHx: 09:53 Unable to obtain; hj - Immunization history:: Adult Immunizations unknown. - Social history:: Smoking status: unknown. - Ebola Screening: : Patient negative for fever greater than or equal to 101.5 degrees Fahrenheit, and additional compatible Ebola Virus Disease symptoms Patient denies exposure to infectious person Patient denies travel to an Ebola-affected area in the 21 days before illness onset. Screenin:51 Abuse screen: Denies threats or abuse. Denies injuries from another. Nutritional hj screening: No deficits noted. Tuberculosis screening: No symptoms or risk factors identified. Fall Risk Secondary diagnosis (15 points). Assessment: 09:52 Reassessment: see triage for assessment;. hj 10:00 Reassessment: wheeled to CT:. hj 10:10 Reassessment: wheeled back to room;. hj 10:22 Reassessment: Patient and/or family updated on plan of care and expected duration. Pain hj level reassessed. family in room;. 11:30 Reassessment: for transfer;. hj 12:00 Reassessment: Patient and/or family updated on plan of care and expected duration. Pain hj level reassessed. awaiting transfer;. 13:21 Reassessment: for admit;. hj 13:53 Reassessment: Patient and/or family updated on plan of care and expected duration. Pain hj level reassessed. awaiting room placement;. Vital Signs: 09:51 BP 163 / 69; Pulse 63; Resp 18; Temp 98.1(TE); Pulse Ox 99% on 2 lpm NC; Weight 72.57 hj kg; Height 5 ft. 8 in. (172.72 cm); 10:22 BP 155 / 65; Pulse 88; Resp 18; Pulse Ox 100% on 2 lpm NC; hj 11:11 BP 188 / 85; Pulse 52; Resp 18; Pulse Ox 100% on 2 lpm NC; hj 12:53 BP 145 / 66; Pulse 51; Resp 18; Pulse Ox 100% on 2 lpm NC; hj 13:19 BP 153 / 62; Pulse 48; Resp 18; Pulse Ox 100% on 2 lpm NC; hj 13:53 BP 159 / 70; Pulse 47; Resp 18; Pulse Ox 100% on 2 lpm NC; hj 14:42 BP 167 / 68; Pulse 49; Resp 18; Pulse Ox 100% on 2 lpm NC; hj 09:51 Body Mass Index 24.33 (72.57 kg, 172.72 cm) hj [place] Coma Score: 10:38 Eye Response: none(1). Verbal Response: none(1). Motor Response: withdraws from jr8 pain(4). Total: 6. ED Course: 09:46 Patient arrived in ED. hj 09:46 Giovany Schmidt PA is PHCP. jr8 09:46 Stephen Maddox MD is Attending Physician. jr8 09:47 Patient has correct armband on for positive identification. Placed in gown. Bed in low hj position. Call light in reach. Side rails up X2. Seizure precautions initiated. 09:50 Triage completed. hj 09:52 Arm band placed on right wrist. hj 09:52 Maintain EMS IV. Dressing intact. Good blood return noted. Site clean \T\ dry. Gauge \T\ hj site: 20 G L AC:. 09:52 Accessed PICC line. Clean \T\ dry. Dressing intact. hj 09:56 Poncho Banerjee, RN is Primary Nurse. hj 10:04 CT Head Brain wo Cont In Process Unspecified. EDMS 10:04 CT completed. Patient tolerated procedure well. Patient moved to CT via stretcher. Patient moved back from CT. 10:06 X-ray completed. Portable x-ray completed in exam room. Patient tolerated procedure mh1 well. 10:06 XRAY Chest (1 view) In Process Unspecified. EDMS 10:22 EKG done, by ED staff, reviewed by Giovany GLASS. jb1 10:56 Bladder scan completed. 390. hj 11:05 transfer initiated with [facility]/ pt's clinicals faxed over as eb requested. per Haydee they are currently on diversion but are working on getting beds. 13:06 Sergei Lauren MD is Hospitalizing Provider. jr8 13:07 called and cancelled the transfer request to [facility] as requested by Giovany Glass/ spoke eb with Cheryl. 15:23 No provider procedures requiring assistance completed. Patient admitted, IV remains in hj place. intact. Administered Medications: No medications were administered Outcome: 13:06 Decision to Hospitalize by Provider. jr8 15:23 Admitted to Tele accompanied by tech, family with patient, via stretcher, room 401, hj with oxygen, with chart, Report called to JAMMIE Caballero 15:23 Condition: stable 15:23 Instructed on the need for admit, Demonstrated understanding of instructions. 15:24 Patient left the ED. hj Signatures: Dispatcher [employer] EDMS Pedro Varma jb1 Stephanie Lopes 1 Giovany Schmidt PA PA jr8 Kia Gregory Poncho Banerjee, Carole Vargas RN
[2019-04-13] MEDS ORDERED: ONDANSETRON 4 MG/2 ML VIAL IV PRN (13:55)
[2019-04-13] MEDS: NA CHLORIDE 0.9% 1,000 ML IV SCH (15:45)
[2019-04-13 15:59] VITALS: BMI 24.3
--- NOTE | 2019-04-13 18:58 | P.HP ---
Certification for Inpatient Patient admitted to: Inpatient With expected LOS: >2 Midnights Practitioner: I am a practitioner with admitting privileges, knowledge of patient current condition, hospital course, and medical plan of care. Services: Services provided to patient in accordance with Admission requirements found in Title 42 Section 412.3 of the Code of Federal Regulations Patient History Date of Service: 04/13/19 Reason for admission: SEIZURES History of Present Illness: MR. FOSTER IS GOING TO [facility] FOR MYELODYSPLASTIC SYNDROME. HE HAS BEEN ON INVESTIGATIONAL THERAPY BUT HAS LOST SIGNIFICANT AMOUNT OF WEIGHT. HE IS NOT EATING WELL. HE STARTED TO HAVE HEMATURIA YESTERDAY AND TODAY. HE HAD 3 EPISODES OF SHAKING OF BODY TODAY. I ASKED IF HE HAD TONGUE BITE OR INCONTINENCE AND SHE SAID HE DID NOT. HE HAS BEEN LETHARGIC AND JUST STARTED TO TALK. HE DID RECOGNIZE ME BUT NOT ABLE TO EXPLAIN WHAT HAPPENED. Allergies No Known Allergies Allergy (Verified 03/03/18 23:11) Home Medications: Donepezil HCl [Aricept] 23 mg PO BEDTIME 03/03/18 Finasteride [Proscar] 5 mg PO BEDTIME 03/03/18 Gabapentin [Neurontin] 100 mg PO TID 03/03/18 Isosorbide Mononitrate [Isosorbide Mononitrate ER] 30 mg PO BEDTIME 03/03/18 Mirabegron [Myrbetriq] 25 mg PO BEDTIME 03/03/18 Quetiapine Fumarate [Seroquel] 25 mg PO BEDTIME 03/03/18 Tamsulosin [Flomax] 0.4 mg PO BEDTIME 03/03/18 Furosemide [Lasix] 20 mg PO DAILY 04/13/19 Memantine HCl [Namenda] 5 mg PO DAILY 04/13/19 Omeprazole [Prilosec] 40 mg PO BEDTIME 04/13/19 Valacyclovir [Valtrex*] 1,000 mg PO DAILY 04/13/19 - Past Medical/Surgical History Has patient received pneumonia vaccine in the past: No Diabetic: No -: CVA -: Alzheimers / Dementia -: Enlarge Prostate -: Depression -: Neuropathy -: Cholecystectomy -: Rt knee surgery -: hernia repair Psychosocial/ Personal History: DEMENTIA, GREAT FAMILY SUPPORT - Family History Mother -: Hypertension - Social History Smoking Status: Current every day smoker Counseled patient to stop smoking for: less than 10 minutes Smoking therapy provided: Yes (HAS REFUSED TO QUIT SMOKING IN PAST MANY TIMES.) Alcohol use: No CD- Drugs: No Caffeine use: Yes Place of Residence: Home Review of Systems 10-point ROS is otherwise unremarkable General: Weakness, Malaise Neurological: Confusion, As per HPI Physical Examination - Vital Signs Temperature: 96.9 F Blood Pressure: 199/84 Pulse: 49 Respirations: 16 Pulse Ox (%): 100 - Physical Exam General: Alert, Mild distress, Confused HEENT: Atraumatic, PERRLA, Mucous membr. moist/pink, EOMI, Sclerae nonicteric Neck: Supple, 2+ carotid pulse no bruit, No LAD, Without JVD or thyroid abnormality Respiratory: Clear to auscultation bilaterally, Normal air movement Cardiovascular: Regular rate/rhythm, Normal S1 S2 Gastrointestinal: Normal bowel sounds, No tenderness Musculoskeletal: No tenderness Integumentary: No rashes Neurological: Normal speech, Cranial nerves 3-12 intact (NECK SUPPLE. ), Other ( ORIENTED TO PLACE AN PERSON NOT TO TIME. ), Abnormal strength (GEN WEAK), Abnormal tone Lymphatics: No axilla or inguinal lymphadenopathy - Studies Laboratory Data (last 24 hrs) 04/13/19 10:15: PT 14.3 H, INR 1.22 04/13/19 10:15: WBC 1.2 L* D, Hgb 9.3 L, Hct 28.6 L, Plt Count 69 L 04/13/19 10:15: Sodium 140, Potassium 3.4 L, BUN 13, Creatinine 0.81, Glucose 117 H, Magnesium 1.9, Total Bilirubin 0.6, AST 16, ALT 16, Alkaline Phosphatase 78 Assessment and Plan - Problems (Diagnosis) (1) Seizure Current Visit: Yes Status: Acute Plan: THESE ARE ATYPICAL EPISODES. I HAVE SEEN THESE IN DEMENTIA PTS BEFORE. JUSTINLUCYRA HAS WORKED WELL. FAMILY DOES NOT WANT ANY MAJOR INTERVENTIONS. I WILL AVOID MRI AND EEG. CANCEL NEURO CONSULT. FAMILY IS VERY MUCH WANTING TO KEEP HIM COMFORTABLE. THEY WANT DNR STATUS. (2) Hematuria Current Visit: Yes Status: Acute Plan: ROCEPHIN IV . THIS CAN BE FROM UTI. IF IT IS NOT, HE IS NOT A GREAT CANDIDATE FOR EVAL. HE HAS DEMNETIA AND LOST SIGNIFICANT WEIGHT AND IS NOW DEBILITATED. Qualifiers: Hematuria type: gross Qualified Code(s): R31.0 - Gross hematuria (3) Myelodysplasia (myelodysplastic syndrome) Current Visit: Yes Status: Chronic Plan: FAMILY KNOWS THAT THERAPY WITH [facility] HAS MADE HIM WORSE. HE IS NOT EATING. HE HAS LOST WEIGHT. THEY KNOW THAT THEY WANT NO TREATMENT IF IT IS TREATING NUMBERS AND MAKING THE PATIENT WORSE. THEY WANT TO STOP ALL THERAPY AND KEEP HIM COMFORTABLE. I WILL SEE HOW HE DOES WITH TWO DAYS OF THERAPY HERE. - Advance Directives Does patient have a Living Will: No Does patient have a Durable POA for Healthcare: No
[2019-04-13] MEDS ORDERED: CEFTRIAXONE 1 GM/NS 50 ML 1 GM/50 ML BAG IV SCH (20:00)
[2019-04-13] MEDS ORDERED: CEFTRIAXONE/SWI 1gm 1 GM/10 ML SYR IV SCH (20:00)
[2019-04-13] MEDS ORDERED: LEVETIRACETAM 500 MG/5 ML VIAL IV ONE (20:37)
[2019-04-13] MEDS: ISOSORBIDE MONO SR 30 MG TAB PO SCH (20:47)
[2019-04-13] MEDS: FINASTERIDE 5 MG TAB PO SCH (20:47)
[2019-04-13] MEDS: QUETIAPINE 25 MG TAB PO SCH (20:47)
[2019-04-13] MEDS: TAMSULOSIN 0.4 MG SR CAP PO SCH (20:47)
[2019-04-13] MEDS: levETIRAcetam 500 MG in NA CHLORIDE 0.9% 100 ML IV SCH (20:48)
[2019-04-13] MEDS: HOME MED 1 EA UNK (Donepezil Hcl [Aricept] 23 MG) PO SCH (20:49)
[2019-04-13] MEDS ORDERED: HOME MED 1 EA UNK (Mirabegron [Myrbetriq] 25 MG) PO SCH (21:00)
[2019-04-13] MEDS ORDERED: GABAPENTIN 100 MG CAP PO SCH (21:00)
[2019-04-13] MEDS ORDERED: HOME MED 1 EA UNK (Omeprazole [Prilosec] 40 MG) PO SCH (21:00)
[2019-04-14] MEDS ORDERED: NA CHLORIDE 0.9% 100 ML IV ONE (04:12)
[2019-04-14 04:34] LABS: Absolute Lymphocytes (CBC) 0.8 K/uL (0.7-4.9); Absolute Monocytes 0.3 K/uL (0.1-1.3); Eosinophils % 0.3 % (0-4.4); Hematocrit 25.6 % (39.6-49.0); Lymphocytes % 37.3 % (15.3-44.8); MPV 8.5 fL (7.6-11.3); Monocytes % 15.2 % (3.3-12.3); RBC Red Blood Cell Count 2.93 M/uL (4.33-5.43)
[2019-04-14 04:48] LABS: Potassium 3.5 mmol/L (3.5-5.1)
[2019-04-14] MEDS: PANTOPRAZOLE 40MG TABLET PO SCH (05:28)
[2019-04-14] MEDS: levETIRAcetam 500 MG in NA CHLORIDE 0.9% 100 ML IV SCH (07:00)
--- NOTE | 2019-04-14 07:55 | EKG ---
Test Date: 2019-04-13 Test Time: 10:15:36 [employer] Lecturer: JOSEE MEASUREMENT RESULTS: Intervals: Rate: 59 UT: 264 QRSD: 154 QT: 512 QTc: 506 Gray: P: 64 UT: 264 QRS: -18 T: 73 INTERPRETIVE STATEMENTS: Sinus bradycardia with 1st degree AV block Left bundle branch block Abnormal ECG Compared to ECG 03/03/2018 20:04:00 No significant changes Electronically Signed On 04-14-19 07:53:47 CDT by Liam Huerta
[2019-04-14] MEDS ORDERED: levETIRAcetam 500 MG in NA CHLORIDE 0.9% 100 ML IV SCH (09:00)
[2019-04-14] MEDS ORDERED: CEFTRIAXONE/SWI 1gm 1 GM/10 ML SYR IVP SCH (09:00)
[2019-04-14] MEDS ORDERED: FUROSEMIDE 20 MG TABLET PO SCH (09:00)
[2019-04-14] MEDS: VALACYCLOVIR 500 MG TAB PO SCH (09:08)
[2019-04-14] MEDS: MEMANTINE HCL 10 MG TABLET PO SCH (09:08)
[2019-04-14] MEDS: NA CHLORIDE 0.9% 1,000 ML IV SCH (09:14)
--- NOTE | 2019-04-14 10:56 | P.PN ---
Subjective Date of Service: 04/14/19 Chief Complaint: SEIZURES Subjective: Improving HE IS LOT MORE AWAKE. HAS NO COMPLAINTS TODAY. Review of Systems 10-point ROS is otherwise unremarkable Physical Examination - Vital Signs Temperature: 97.3 F Blood Pressure: 111/55 Pulse: 53 Respirations: 16 Pulse Ox (%): 98 - Physical Exam General: Alert, In no apparent distress, Confused HEENT: Atraumatic, PERRLA, EOMI Neck: Supple, JVD not distended Respiratory: Clear to auscultation bilaterally, Normal air movement Cardiovascular: Regular rate/rhythm, Normal S1 S2 Gastrointestinal: Normal bowel sounds, No tenderness Musculoskeletal: No tenderness Integumentary: No rashes Neurological: Normal speech, Normal strength at 5/5 x4 extr, Dementia (BASELINE , NO NEW CHANGES. ABLE TO FOLLOW COMMANDS.) Lymphatics: No axilla or inguinal lymphadenopathy - Studies Medications List Reviewed: Yes Assessment And Plan - Current Problems (Diagnosis) (1) Seizure Current Visit: Yes Status: Acute Plan: THESE ARE ATYPICAL EPISODES. I HAVE SEEN THESE IN DEMENTIA PTS BEFORE. KEPPRA HAS WORKED WELL. FAMILY DOES NOT WANT ANY MAJOR INTERVENTIONS. I WILL AVOID MRI AND EEG. CANCEL NEURO CONSULT. FAMILY IS VERY MUCH WANTING TO KEEP HIM COMFORTABLE. THEY WANT DNR STATUS. RESUME KEPPRA ORAL DC IV. (2) Hematuria Current Visit: Yes Status: Acute Plan: ROCEPHIN IV . THIS CAN BE FROM UTI. IF IT IS NOT, HE IS NOT A GREAT CANDIDATE FOR EVAL. HE HAS DEMNETIA AND LOST SIGNIFICANT WEIGHT AND IS NOW DEBILITATED. DC ABX. UA SHOWS NO ESTERASE. WILL REDO UA. Qualifiers: Hematuria type: gross Qualified Code(s): R31.0 - Gross hematuria (3) Myelodysplasia (myelodysplastic syndrome) Current Visit: Yes Status: Chronic Plan: FAMILY KNOWS THAT THERAPY WITH [facility] HAS MADE HIM WORSE. HE IS NOT EATING. HE HAS LOST WEIGHT. THEY KNOW THAT THEY WANT NO TREATMENT IF IT IS TREATING NUMBERS AND MAKING THE PATIENT WORSE. THEY WANT TO STOP ALL THERAPY AND KEEP HIM COMFORTABLE. I WILL SEE HOW HE DOES WITH TWO DAYS OF THERAPY HERE.
[2019-04-14 12:20] LABS: MPV 8.4 fL (7.6-11.3)
[2019-04-14 12:20] LABS: Urine Appearance TURBID; Urine Blood 3+ (NEG); Urine Color RED; Urine Glucose NEGATIVE (NEG); Urine Protein 2+ (NEG); Urine Specific Gravity 1.025 (1.005-1.030)
[2019-04-14 12:26] LABS: Urine Bilirubin 2+ (NEG)
[2019-04-14 12:31] LABS: Urine Bacteria <20 /HPF (NONE SEEN); Urine Coarse Granular Casts 0-5 /LPF (NONE SEEN); Urine Culture Reflex Order REFLEXED; Urine Mucus HEAVY /HPF (NONE SEEN); Urine RBC >50 /HPF (NONE SEEN)
[2019-04-14 12:41] LABS: Platelet Estimate DECR
[2019-04-14] MEDS: ENOXAPARIN 40 MG/0.4 ML SQ SCH (12:44)
[2019-04-14] MEDS: levETIRAcetam 500 MG TAB PO SCH ×2 (12:44→20:26)
[2019-04-14] MEDS: ISOSORBIDE MONO SR 30 MG TAB PO SCH (20:25)
[2019-04-14] MEDS: TAMSULOSIN 0.4 MG SR CAP PO SCH (20:25)
[2019-04-14] MEDS: FINASTERIDE 5 MG TAB PO SCH (20:26)
[2019-04-14] MEDS: QUETIAPINE 25 MG TAB PO SCH (20:26)
[2019-04-14] MEDS: HOME MED 1 EA UNK (Donepezil Hcl [Aricept] 23 MG) PO SCH (21:00)
[2019-04-15] MEDS: NA CHLORIDE 0.9% 1,000 ML IV SCH (03:43)
[2019-04-15] MEDS: PANTOPRAZOLE 40MG TABLET PO SCH (05:42)
[2019-04-15 07:59] VITALS: O2SAT 95
[2019-04-15] MEDS: MEMANTINE HCL 10 MG TABLET PO SCH (08:08)
[2019-04-15] MEDS: VALACYCLOVIR 500 MG TAB PO SCH (08:08)
[2019-04-15] MEDS: ENOXAPARIN 40 MG/0.4 ML SQ SCH (08:09)
[2019-04-15] MEDS: levETIRAcetam 500 MG TAB PO SCH (08:09)
[2019-04-15] MEDS ORDERED: LIDOCAINE JELLY 2%- 5 ML TUBE TOP ONE (11:50)
[2019-04-15 12:18] VITALS: BP 162/74
--- NOTE | 2019-04-15 16:51 | CON ---
History Of Present Illness: This is a 78-year-old gentleman with diagnosis of urinary retention, sev ere bradycardia, pancytopenia, and seizure. He had a 2 Gabriel catheters [QAMARKER]. He has a history of BPH and takes Flomax. I would leave that Flomax in place, have him to follow up with me next wee k for cystoscope and uroflow. Allergies: NO KNOWN DRUG ALLERGIES. Past Medical History: Alzheimer dementia, BPH, GERD, hypertension, myelodysplastic syndro me, pancytopenia, thrombocytopenia, leukemia, bone cancer, CVA and neuropathy. Home Medications: Aricept, Proscar, Flomax, gabapentin, isosorbide mononitrate, Prilosec, Valtrex. Social History: He is current everyday smoker. No drugs. No alcohol. Some caffeine use. Resides at home. Review of Systems: A 10-point review of systems otherwise unremarkable except for weakness generally and some neurologic al confusion. Physical Examination: Vital Signs: Afebrile . HEENT: Atraumatic and normocephalic. Neck: Supple. Respiratory: Clear. Cardiovascular: S1, S2. Gastrointestinal: Normal bowel sounds. : Phallus circumcised. Gabriel catheter in place, draining dark cranberry urine. Laboratory Studies: CBC: White count 2.1, H and H is 8 and 26, and platelet count 68. Coagulation: PT 14, INR 1.2. Chemistry: Sodium 145, potassium 3.5, chloride 111, carbon dioxide 32, BUN 13, cr eatinine 0.8, GFR is 8, glucose 99, calcium 7.7. Urine shows positive nitrates, positive for blood a nd ketones, esterase positive. Microbiology showing less than 10,000 growth. He is on Lovenox for blood thinner. He is on Proscar and tamsulosin. We will go ahead and start him on some antibiotics. Assessment: Urinary retention, gross hematuria. Positive UA, but negative urine culture. Start the patient on some antibiotics. Continue Flomax. Continue finasteride. I would go ahead and definite ly stop his Myrbetriq that may be causing his urinary retention. PB/MODL Voice ID: [id number] Report ID: [id number]
--- NOTE | 2019-04-15 17:24 | P.DS ---
Admission Date: 04/13/19 Discharge Date: 04/15/19 Disposition: ROUTINE DISCHARGE Reason for Admission: SEIZURES - Problems (1) Seizure Current Visit: Yes Status: Acute (2) Hematuria Current Visit: Yes Status: Acute Qualifiers: Hematuria type: gross Qualified Code(s): R31.0 - Gross hematuria (3) Myelodysplasia (myelodysplastic syndrome) Current Visit: Yes Status: Chronic Brief History of Present Illness: MR. FOSTER IS GOING TO [facility] FOR MYELODYSPLASTIC SYNDROME. HE HAS BEEN ON INVESTIGATIONAL THERAPY BUT HAS LOST SIGNIFICANT AMOUNT OF WEIGHT. HE IS NOT EATING WELL. HE STARTED TO HAVE HEMATURIA YESTERDAY AND TODAY. HE HAD 3 EPISODES OF SHAKING OF BODY TODAY. I ASKED IF HE HAD TONGUE BITE OR INCONTINENCE AND SHE SAID HE DID NOT. HE HAS BEEN LETHARGIC AND JUST STARTED TO TALK. HE DID RECOGNIZE ME BUT NOT ABLE TO EXPLAIN WHAT HAPPENED. MR. FOSTER IS A LOT BETTER. HE HAS CRUMP FOR HEMATURIA. DR. SIMMS WILL FU. HE IS ABLE TO AMBULATE NOW. HE WILL BE ON [place] FOR NEW ONSET SEIZURES THAT CAN BE FROM DEMENTIA.. FAMILY HAS DECIDED NOT TO GO FOR CHEMO HE GOT REALLY WORSE ON CHEMO. Vital Signs/Physical Exam: Temp Pulse Resp BP Pulse Ox 98.1 F 52 18 162/74 H 97 04/15/19 12:00 04/15/19 12:00 04/15/19 12:00 04/15/19 12:18 04/15/19 12:00 Laboratory Data at Discharge: WBC 2.1 K/uL (4.3-10.9) L D 04/14/19 04:10 Hgb 8.4 g/dL (13.6-17.9) L 04/14/19 04:10 Hct 25.6 % (39.6-49.0) L 04/14/19 04:10 Plt Count 72 K/uL (152-406) L 04/14/19 11:53 PT 14.3 SECONDS (9.5-12.5) H 04/13/19 10:15 INR 1.22 04/13/19 10:15 Sodium 145 mmol/L (136-145) 04/14/19 04:10 Potassium 3.5 mmol/L (3.5-5.1) 04/14/19 04:10 BUN 13 mg/dL (7-18) 04/14/19 04:10 Creatinine 0.86 mg/dL (0.55-1.3) 04/14/19 04:10 Glucose 99 mg/dL (74-106) 04/14/19 04:10 Magnesium 1.9 mg/dL (1.8-2.4) 04/13/19 10:15 Total Bilirubin 0.6 mg/dL (0.2-1.0) 04/13/19 10:15 AST 16 U/L (15-37) 04/13/19 10:15 ALT 16 U/L (12-78) 04/13/19 10:15 Alkaline Phosphatase 78 U/L (45-117) 04/13/19 10:15 Home Medications: Donepezil HCl [Aricept] 23 mg PO BEDTIME 03/03/18 Finasteride [Proscar] 5 mg PO BEDTIME 03/03/18 Gabapentin [Neurontin*] 100 mg PO TID 03/03/18 Isosorbide Mononitrate [Isosorbide Mononitrate ER] 30 mg PO BEDTIME 03/03/18 Mirabegron [Myrbetriq] 25 mg PO BEDTIME 03/03/18 Quetiapine Fumarate [Seroquel] 25 mg PO BEDTIME 03/03/18 Tamsulosin [Flomax] 0.4 mg PO BEDTIME 03/03/18 Furosemide [Lasix] 20 mg PO DAILY 04/13/19 Memantine HCl [Namenda] 5 mg PO DAILY 04/13/19 Omeprazole [Prilosec] 40 mg PO BEDTIME 04/13/19 Valacyclovir [Valtrex*] 1,000 mg PO DAILY 04/13/19 Losartan Potassium [Cozaar*] 50 mg PO DAILY #90 tablet 04/15/19 Nitrofuran Macro [Macrodantin] 50 mg PO DAILY #14 cap 04/15/19 New Medications: Losartan Potassium [Cozaar*] 50 mg PO DAILY #90 tablet Nitrofuran Macro [Macrodantin] 50 mg PO DAILY #14 cap Followup: Shannan Simms MD [ACTIVE - CAN ADMIT] - (Appointment Sunday at 9:00am.)
[2019-04-15 18:00] VITALS: TEMP 97.9
[2019-04-15] MEDS ORDERED: DONEPEZIL HCL 5 MG TAB PO SCH (21:00)
== END 2019-04-15 19:14 | disposition home or self-care (01) | DRG 101 ==
LOC: ER 09:48 → ERHOLD 13:53 → 4TH 14:50
PROVIDERS: ADMIT Internal Medicine; ATTEND Internal Medicine
DX: R56.9 Unspecified convulsions (principal); D61.818 Other pancytopenia; D46.9 Myelodysplastic syndrome, unspecified; I10 Essential (primary) hypertension; R33.9 Retention of urine, unspecified; R31.0 Gross hematuria; K21.9 Gastro-esophageal reflux disease without esophagitis; G30.9 Alzheimer's disease, unspecified; F02.80 Dementia in other diseases classified elsewhere, unspecified severity, without behavioral disturbance, psychotic disturbance, mood disturbance, and anxiety; F17.210 Nicotine dependence, cigarettes, uncomplicated; Z86.73 Personal history of transient ischemic attack (TIA), and cerebral infarction without residual deficits
CPT/HCPCS: 36415; 70450; 71045; 74176; 80048; 80076; 81001; 81003; 81015; 83735; 83880; 84484; 85025; 85049; 85610; 87086; 87088; 93005; 97163; 99284; 99285; J0696; J1650; J1953; J7030

== ENCOUNTER 2019-04-15 21:40 | Emergency (ER) | payer OTHER ==
--- NOTE | 2019-04-15 23:20 | ER ---
Nurse's Notes [facility] Name: Josué Means Age: 78 yrs Sex: Male : 1940 Arrival Date: 04/15/2019 Time: 21:48 Bed 20 Private MD: Sergei Lauren V Diagnosis: Leakage of urinary (indwelling) catheter;Mechanical complication of urinary (indwelling) catheter Presentation: 04/15 21:51 Presenting complaint: EMS states: Reports pt complaining of pain to catheter insertion ea site and bleeding. Family reports pt had been discharged today and they noticed blood tinged urine and were told to come to the hospital if bleeding occurs. Transition of care: patient was not received from another setting of care. Onset of symptoms was April 15, 2019. Risk Assessment: Do you want to hurt yourself or someone else? Patient reports no desire to harm self or others. Initial Sepsis Screen: Does the patient meet any 2 criteria? No. Patient's initial sepsis screen is negative. Does the patient have a suspected source of infection? No. Patient's initial sepsis screen is negative. Care prior to arrival: None. 21:51 Method Of Arrival: EMS: [facility] ea 21:51 Acuity: JERE 3 ea - Immunization history:: Adult Immunizations unknown. - Social history:: Smoking status: Patient/guardian denies using tobacco. - Ebola Screening: : No symptoms or risks identified at this time. Screenin:59 Abuse screen: Denies threats or abuse. Nutritional screening: No deficits noted. ea Tuberculosis screening: No symptoms or risk factors identified. Fall Risk IV access (20 points). Assessment: 22:01 General: Appears uncomfortable, Behavior is calm, cooperative, appropriate for age. ea Pain: Complains of pain in groin. Neuro: Level of Consciousness is awake, alert, obeys commands, Oriented to person, place. Cardiovascular: Patient's skin is warm and dry. Respiratory: Airway is patent Respiratory effort is even, unlabored, Respiratory pattern is regular, symmetrical. GI: Abdomen is non-distended. : Gabriel in place to gravity drainage Urine is blood tinged, Swelling noted at urinary meatus. Derm: Skin is pink, warm \T\ dry. 23:15 Reassessment: Patient and/or family updated on plan of care and expected duration. Pain ea level reassessed. Pt catheter irrigated with 20 mls of H2O pt tolerated well. pink tinged fluid noted in tube no sedimentation noted at this time. 23:45 Reassessment: Patient and/or family updated on plan of care and expected duration. Pain ea level reassessed. 200 mls of pink tinged urine noted in Gabriel bag. 04/16 00:17 Reassessment: Patient and/or family updated on plan of care and expected duration. Pain ea level reassessed. Pt alert and oriented to self and time. Respirations even and unlabored. Chest expansions even and symmetrical. Pt left ED via wheelchair per nurse. Pt assisted to private vehicle, pt accompanied by family. Vital Signs: 04/15 21:59 BP 180 / 108; Pulse 62; Resp 18; Temp 98.4; Pulse Ox 100% on R/A; Weight 74.39 kg; ea Height 5 ft. 7 in. (170.18 cm); Pain 10/10; 23:30 BP 189 / 82; Pulse 60; Resp 18; Pulse Ox 97% on R/A; ea 04/16 00:00 BP 190 / 70; Pulse 60; Resp 18; Pulse Ox 98% ; ea 04/15 21:59 Body Mass Index 25.69 (74.39 kg, 170.18 cm) ea ED Course: 04/15 21:48 Patient arrived in ED. bb 21:51 Elda Obrien, RN is Primary Nurse. ea 21:55 Triage completed. ea 22:00 Arm band placed on right wrist. Patient placed in an exam room, on a stretcher, on ea pulse oximetry. 22:01 Patient has correct armband on for positive identification. Bed in low position. Call ea light in reach. Side rails up X2. 22:16 Jimi Pavon MD is Attending Physician. gs 22:48 Sergei Lauren MD is Private Physician. ds1 23:19 Shannan Simms MD is Referral Physician. 04/16 00:14 No provider procedures requiring assistance completed. Patient did not have IV access ea during this emergency room visit. Administered Medications: 00:13 Drug: [place] 5 mg-325 mg 1 tabs Route: PO; ea 00:14 Follow up: Response: Medication administered at discharge. ea Outcome: 04/15 23:19 Discharge ordered by . gary 04/16 00:17 Discharged to home via wheelchair, with family. ea Condition: stable Discharge instructions given to patient, family, Instructed on discharge instructions, follow up and referral plans. medication usage, Demonstrated understanding of instructions, follow-up care, medications. 00:20 Patient left the ED. ea Signatures: Frances Leal ds1 Eden Mayorga RN Elda Lira RN RN ea Starr, Gregory, MD MD gs
[2019-04-16] MEDS ORDERED: HYDROCODONE/APAP 5/325 MG TAB ONE (00:21)
--- NOTE | 2019-04-16 00:21 | EDPHYS ---
Physician Documentation [facility] Name: Josué Durbin Age: 78 yrs Sex: Male : 1940 Arrival Date: 04/15/2019 Time: 21:48 Bed 20 Private MD: Sergei Lauren V ED Physician Jimi Pavon HPI: 04/15 23:47 This 78 yrs old Male presents to ER via EMS with complaints of Blood In gs Catheter. 23:47 The patient presents with a Pratt catheter problem, draining bloody urine, is leaking gs urine. Onset: The symptoms/episode began/occurred today. Associated signs and symptoms: Pertinent negatives: fever. The patient has not experienced similar symptoms in the past. - Immunization history:: Adult Immunizations unknown. - Social history:: Smoking status: Patient/guardian denies using tobacco. - Ebola Screening: : No symptoms or risks identified at this time. ROS: 23:47 All other systems are negative. gs Exam: 23:47 Constitutional: The patient appears alert, awake, uncomfortable. gs 23:47 : a pratt is noted, urine is blood tinged. Vital Signs: 21:59 BP 180 / 108; Pulse 62; Resp 18; Temp 98.4; Pulse Ox 100% on R/A; Weight 74.39 kg; ea Height 5 ft. 7 in. (170.18 cm); Pain 10/10; 23:30 BP 189 / 82; Pulse 60; Resp 18; Pulse Ox 97% on R/A; ea 04/16 00:00 BP 190 / 70; Pulse 60; Resp 18; Pulse Ox 98% ; ea 04/15 21:59 Body Mass Index 25.69 (74.39 kg, 170.18 cm) ea MDM: 04/15 22:16 Patient medically screened. gs 23:47 Data reviewed: vital signs, nurses notes. Response to treatment: the patient's symptoms gs have resolved after treatment, draining,color clearing. Administered Medications: 04/16 00:13 Drug: [place] 5 mg-325 mg 1 tabs Route: PO; ea 00:14 Follow up: Response: Medication administered at discharge. ea Disposition: 04/15/19 23:19 Discharged to Home. Impression: Leakage of urinary (indwelling) catheter, Mechanical complication of urinary (indwelling) catheter. - Condition is Stable. - Discharge Instructions: Pratt Catheter Care, Adult, [id number]. - Medication Reconciliation Form, Thank You Letter, Antibiotic Education, Prescription Opioid Use form. - Follow up: Shannan Simms MD; When: 2 - 3 days; Reason: Re-evaluation by your physician. Signatures: Elda Obrien RN RN ea Starr, Gregory, MD MD gs Corrections: (The following items were deleted from the chart) 00:20 04/15 23:19 04/15/2019 23:19 Discharged to Home. Impression: Leakage of urinary ea (indwelling) catheter; Mechanical complication of urinary (indwelling) catheter. Condition is Stable. Forms are Medication Reconciliation Form, Thank You Letter, Antibiotic Education, Prescription Opioid Use. Follow up: Shannan Simms; When: 2 - 3 days; Reason: Re-evaluation by your physician. gs
[2019-04-16 09:44] VITALS: TEMP 98.4
[2019-04-16 09:47] VITALS: BP 190/70; O2SAT 98
== END 2019-04-16 00:20 | disposition home or self-care (01) ==
LOC: ER 21:40
DX: T83.038A Leakage of other urinary catheter, initial encounter (principal)
CPT/HCPCS: 99283